=== PATIENT | male | born 1930 | race Caucasian/White ===

== ENCOUNTER 2016-09-28 13:51 | Inpatient (IN) | payer OTHER ==
[2016-09-29] MEDS ORDERED: ONDANSETRON 4 MG/2 ML VIAL IVP PRN (10:38)
[2016-09-29] MEDS ORDERED: OXYCODONE/APAP 5/325 TAB PO PRN (10:38)
[2016-09-29] MEDS ORDERED: ONDANSETRON DISINTEGRATING 4 MG TAB PO PRN (10:38)
[2016-09-29] MEDS ORDERED: ACETAMINOPHEN 325 MG TAB PO PRN (10:38)
[2016-09-29] MEDS ORDERED: LIDO/EPI 1% **for epidural** 30 ML SDV IF ONE (13:00)
--- NOTE | 2016-09-29 14:28 | GHP ---
[f rep st] HISTORY AND PHYSICAL DATE OF ADMISSION: 09/29/2016 DATE OF EVALUATION: 09/29/2016 CHIEF COMPLAINT: Memory loss and balance issues. HISTORY OF PRESENT ILLNESS: The patient is a pleasant 86-year-old male who has been followed by Dr. 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 The patient has a several year hi story of posterior neck pain and left arm pain that has been treated previously with spine injections at [facility] and did well from that. The patient's reports change in the patient's ability to remember things and occasional difficulty with headaches and shuffling gait and poor balance. The patient has an MRI dated 10/22/2014 from [facility] demonstrating moderate perive ntricular and deep hemispheric white matter changes with enlargement of the lateral ventricles. The patient also has likely some component of dementia. Conversation took place with Dr. Pearl regarding whether or not the patient would be a candid ate for a ventriculoperitoneal shunt placement and it was decided that the patient would potentially benefit from an inpatient lumbar drainage trial in the ICU to determine whether or not his symptoms i mproved with drainage of CSF. The patient was subsequently admitted today directly to the ICU for th is trial. FAMILY HISTORY: Dementia. MEDICAL HISTORY: Hernia repair. SOCIAL HISTORY: The patient has never smoked. He drinks a glass of wine daily. The patient is dre ied with 1 grown daughter named Saida who is a nurse practitioner. ALLERGIES: No known drug allergies. REVIEW OF SYSTEMS: A 10-point review of systems is obtained and the patient has some sleeping diffic ulty. He wears glasses. He has hearing loss. He has kidney stones. Poor balance with frequent fal ls. Depression. Dementia. Leg weakness. Neck pain. Arm pain. PHYSICAL EXAMINATION: GENERAL: This is a well developed, well nourished, alert and oriented male in no apparent distress. HEAD, EARS, NOSE, AND THROAT: Within normal limits. EXTREMITIES: Within no rmal limits. NEUROLOGIC: The patient has equal and symmetric strength of the bilateral upper and lo wer extremities with normal sensation in all dermatome distributions of the bilateral upper and lower extremities. His reflexes are 2+ bilaterally in the upper and lower extremities in biceps, brachior adialis, and patellar tendons. VITAL SIGNS: Blood pressure is 120/65, heart rate 64, respiratory rate is 14, oxygen saturation is 9 3% on room air. IMPRESSION: This is an 86-year-old male with progressive memory loss and gait instability and questi onable normal pressure hydrocephalus. He is not having any urinary incontinence. The patient has ve ntriculomegaly on an MRI from 2015. It is unclear as to whether or not the patient has hydrocephalus or not and is currently admitted for a lumbar drain trial. The patient does have some memory issues and may have a component of dementia that is contributing to that problem. PLAN: All the above issues were discussed with the patient and the patient's and daughter who w ere present today with Dr. Pearl. A lumbar drain procedure consent form was signed and the patient agreed to proceed with lumbar drain placement under sterile conditions in the ICU. Successf ul lumbar drain placement was obtained on the 1st pass of the Tuohy needle. At this time, the patient will undergo approximately 30 mL of CSF drainage and then approximately 10- 20 mL of CSF drainage per hour. He was evaluated by Physical Therapy and Occupational Therapy prior to placement of the lumbar drain to obtain a baseline functional status. PT and OT will then reasses s the patient later today to determine if there is any improvement. If improvement is noted and coul d be reasonably correlated to the results of the lumbar drainage, then we would consider NURSING HOME ADMINISTRATOR shunt norah cement. Dr. Pearl was present during the entire procedure for placement of lumbar drain. /[id number]/MODL
--- NOTE | 2016-09-29 16:44 | GCON ---
[f rep st] CONSULTATION PULMONARY/CRITICAL CARE CONSULTATION. DATE OF CONSULTATION: 09/29/2016 REFERRING PHYSICIAN: Miki Pearl MD REASON FOR REFERRAL: Evaluation and management of headache. HISTORY: The patient is an 86-year-old gentleman with a diagnosis of normal pressure hydrocephalus w ho was referred to Dr. Pearl to consider placement of a ventriculoperitoneal shunt. A lumbar drain was placed early this afternoon and the patient was taken for a walk. Physical Therapy felt t hat his gait was a bit better, but the patient did not notice a significant improvement. He has had a diffuse headache since the drain was placed. This is improved with the patient lying down. PAST MEDICAL HISTORY: Hernia repair. MEDICATIONS: At the time of admission include atorvastatin and aspirin. ALLERGIES: None. SOCIAL HISTORY: The patient has never smoked. He drinks a glass of wine daily. He is with a grown daughter. FAMILY HISTORY: Positive for dementia. REVIEW OF SYSTEMS: A 10-point review of systems reveals some difficulties with sleeping and some dep ression. PHYSICAL EXAMINATION: GENERAL: The patient is awake, alert in no acute distress. He currently haylie es a headache. VITAL SIGNS: His blood pressure is 120/61 with a pulse of 64. He is afebrile. Oxyg en saturations are 100% on room air. HEENT: Normocephalic and atraumatic. No icterus. NECK: No J VD. Trachea is midline. CHEST: Clear to auscultation. CARDIAC: Regular rate and rhythm without m urmur. ABDOMEN: Soft, nontender. Bowel sounds are present. EXTREMITIES: No clubbing, cyanosis or edema. NEUROLOGIC: The patient's gait is somewhat unsteady. His reflexes are normal. LABORATORY: An MRI from 2014 demonstrates moderate white matter changes and generalized cerebral atr ophy with enlargement of the lateral ventricles. ASSESSMENT: 1. Possible normal pressure hydrocephalus. The patient had a lumbar drain placed as a diagnostic te st to see whether decompression will help. Immediately after, it is not certain that the patient has had a significant clinical improvement. 2. Headache. This is likely due to drainage of CSF from the lumbar drain. It is improved now with the patient lying back. RECOMMENDATIONS: 1. Continue lumbar drainage as tolerated. 2. Tylenol/oxycodone for headache. If the headache becomes more refractory, then the amount of CSF drained may need to be reduced. Drained may be beneficial. /[id number]/MODL
--- NOTE | 2016-09-29 17:43 | GOP ---
[f rep st] OPERATIVE REPORT DATE OF OPERATION: 09/29/2016 SURGEON: Miki Pearl MD WATER RESOURCES PROGRAM DIRECTOR: Antonio Cam ANESTHESIA: Local. PREOPERATIVE DIAGNOSIS: Possible normal pressure hydrocephalus. POSTOPERATIVE DIAGNOSIS: Possible normal pressure hydrocephalus. PROCEDURE PERFORMED: Placement of lumbar drainage catheter for therapeutic drainage of cerebral spin al fluid. FINDINGS: ESTIMATED BLOOD LOSS: Trace. DESCRIPTION OF PROCEDURE: After informed consent was obtained, the patient was placed in the p osition with left side up. The lumbosacral area was prepped and draped in a sterile fashion, and the subcutaneous tissues infiltrated with local anesthesia at approximately the L4-5 level based on the crest of the iliac hip bone. The Tuohy needle was inserted without difficulty. Good CSF flow was obtained. The drainage catheter was inserted to about 10 cm and connected to a Price drain. 30 cc were drained, and the nurses wer e instructed to drain approximately 10-20 cc continuously for repeated evaluation with Physical Thera py. COMPLICATIONS: None. INDICATIONS FOR PROCEDURE: The patient is an 86-year-old man with gait instability, urinary incontin ence, and progressive mental decline. His daughter is a nurse practitioner and after detailed discus sions of possible options, including ventriculoperitoneal shunting, it was decided to do a trial of C SF drainage. This was also discussed with his neurologist, Dr. Miki Gallego. It was explained in great detail that there was no guarantee this would be predictive of the shunting outcome. /[id number]/MODL
[2016-09-30 06:13] VITALS: O2SAT 95
[2016-09-30] MEDS ORDERED: ATORVASTATIN CALCIUM 20 MG TAB PO SCH (09:00)
[2016-09-30 10:40] VITALS: BP 138/68; PULSE 77; RESP 14; TEMP 97.8
--- NOTE | 2016-09-30 11:20 | PDIAF ---
- Diagnosis Code Status: Full Code - Medication Management Discharge Medications: Medications to Continue on Transfer Atorvastatin Calcium [Lipitor 20 mg (*)] 20 mg PO DAILY 01/06/15 [Last Taken Unknown] Aspirin [Aspirin 81mg (*)] 81 mg PO DAILY 09/29/16 [Last Taken 10 Days Ago] Discharge Medications: Refer to the Discharge Home Medication list for PRN reason. - Orders Services needed: Home Care, Physical Therapy, Occupational Therapy Home Care Face to Face: I certify that this patient was under my care and that I had the required [id number] encounter meeting the encounter requirements on the discharge day. My findings support the fact that the patient is homebound as defined in CMS Chapter 7 Medicare Benefits Manual 30.1.1, The condition of the patient is such that there exists a normal inability to leave home and consequently, leaving home would require a considerable and taxing effort. Diet Recommendation: no restrictions on diet Diet Texture: Regular Texture Diet Additional: Home care with PT/OT for safety evaluation - Follow Up Care Current Providers and Referrals: Micah Rodarte DO [Primary Care Provider] -
== END 2016-09-30 13:04 | disposition home health service (06) | DRG 57 ==
LOC: F2N 09-29 09:47
PROVIDERS: ADMIT Neurological Surgery; ATTEND Neurological Surgery
PROC: 009U30Z Drainage of Spinal Canal with Drainage Device, Percutaneous Approach (ICD-10-PCS; principal; 2016-09-29)
DX: G91.2 (Idiopathic) normal pressure hydrocephalus (principal); F03.90 Unspecified dementia, unspecified severity, without behavioral disturbance, psychotic disturbance, mood disturbance, and anxiety
CPT/HCPCS: 97110-GP; 97116-GP; 97162-GP; 97164-GP; 97166-GO; G8978-GP-CJ; G8979-GP-CI; G8987-GO-CI; G8988-GO-CI; J0690

== ENCOUNTER → 2017-02-16 | Outpatient (CLI) | payer OTHER | LOC: FIMAGING 15:45 | PROVIDERS: ATTEND Family Medicine | DX: M11.13 Familial chondrocalcinosis, wrist (principal); M85.441 Solitary bone cyst, right hand ==

== ENCOUNTER 2017-07-08 11:50 | Inpatient (IN) | payer OTHER ==
[2017-07-08 12:33] LABS: % IMMATURE GRANULYOCYTES 0.5 % (0.0-1.1); ABSOLUTE IMMATURE GRANULOCYTES 0.04 10^3/uL (0.00-0.10); ADD DIFF? NO; ADD MORPH? NO; ADD SCAN? NO; ATYPICAL LYMPHOCYTE FLAG 0 (0-99); FRAGMENT RBC FLAG 0 (0-99); HEMATOCRIT 39.3 % (40.0-51.0); HEMOGLOBIN 14.4 g/dL (13.7-17.5); LEFT SHIFT FLG 10 (0-99); LIPEMIA HEMOLYSIS FLAG 90 (0-99); MEAN CELL HEMOGLOBIN 35.6 pg (27.9-34.1); MEAN CELL HEMOGLOBIN CONCENTR. 36.6 g/dL (32.4-36.7); MEAN PLATELET VOLUME 8.4 fL (8.7-11.7); PLATELET CLUMPS FLAG 0 (0-99); PLATELET COUNT 240 10^3/uL (150-400); RED BLOOD CELL COUNT 4.05 10^6/uL (4.40-6.38); RED CELL DISTRIBUTION WIDTH 12.4 % (11.5-15.2)
[2017-07-08 12:38] LABS: COLOR YELLOW; LEUKOCYTE ESTERASE,URINE NEGATIVE (NEGATIVE); NITRITE,URINE NEGATIVE (NEGATIVE)
--- NOTE | 2017-07-08 12:40 | CPEKG ---
Heart Rate: 75 RR Interval: 800 P-R Interval: 168 QRSD Interval: 68 QT Interval: 372 QTC Interval: 416 P [place]: 18 QRS [place]: -1 T Wave [place]: 7 EKG Severity - NORMAL ECG - EKG Impression: SINUS RHYTHM Electronically Signed By: Sheldon Deleon 09-Jul-2017 21:55:13
[2017-07-08 12:49] LABS: ANION GAP 12 mEq/L (8-16); CARBON DIOXIDE 22 mEq/l (22-31); CHLORIDE 107 mEq/L (97-110); CREATININE 1.1 mg/dL (0.7-1.3); GLOMERULAR FILTRATION RATE > 60; GLUCOSE 92 mg/dL (70-100); POTASSIUM 3.9 mEq/L (3.5-5.2); SODIUM 141 mEq/L (134-144)
--- NOTE | 2017-07-08 12:51 | EDPHY ---
H & P Stated Complaint: RLQ pain Time Seen by Provider: 07/08/17 12:35 HPI/ROS: CHIEF COMPLAINT: Right lower abdominal pain HISTORY OF PRESENT ILLNESS: 86-year-old male arrives via ambulance with his complaining of several months of intermittent lower abdominal pain worsens 3:00 a.m.. No nausea or vomiting. Bowel movements normal. No testicular genitalia pain. No urinary abnormality. No back or flank pain. No fever or chills. No history of abdominal surgeries. PRIMARY CARE PROVIDER: Dr. Micah Rodarte REVIEW OF SYSTEMS: A ten point review of systems was performed and is negative with the exception of the items mentioned in the HPI PAST MEDICAL & SURGICAL HISTORY: Remote herniorrhaphy history. SOCIAL HISTORY:nonsmoker PHYSICAL EXAM (Prior to examination, patient consented to physical exam, hands were washed and my usual and customary physical exam procedures followed) 1) GENERAL: Well-developed, well-nourished, alert and oriented. Appears to be in no acute distress. 2) HEAD: Normocephalic, atraumatic 3) HEENT: Pupils equal, round, reactive to light bilaterally. Sclera anicteric. Nasopharynx, oropharynx, clear, no lesions. Dry mucous membranes 4) NECK: Full range of motion, no meningeal signs. 5) LUNGS: Clear auscultation bilaterally, no wheezes, no rhonchi, no retractions. 6) HEART: Regular rate and rhythm, no murmur, no heave, no gallop. 7) ABDOMEN: No guarding, tender to palpation right lower quadrant positive McBurney's point pain , negative Lou's, negative Rovsing's, negative peritoneal sign, 8) MUSCULOSKELETAL: Moving all extremities, no focal areas of tenderness, no obvious trauma. No peripheral edema or discoloration. 9) BACK: No CVA tenderness, no midline vertebral tenderness, no fluctuance, no step-off, no obvious trauma, no visual or palpable abnormality. 10) SKIN: No rash, no petechiae. 11) : Normal male external genitalia bilateral testicles nontender, no high- riding testicle, bilateral cremasteric reflex present and brisk DIFFERENTIAL DIAGNOSIS: My differential diagnosis includes, but is not limited to, acute appendicitis, acute cholecystitis, bowel obstruction, acute pancreatitis, testicular torsion, gastritis and urinary tract infection. The patient understands that this diagnosis is provisional and can never be 100% accurate. This is a partial list of diagnoses considered. These considerations are based on history, physical exam, past history and reassessment. - Medical/Surgical History Hx Asthma: No Hx Chronic Respiratory Disease: No Hx Diabetes: No Hx Cardiac Disease: No Hx Renal Disease: No Hx Cirrhosis: No Hx Alcoholism: No Hx HIV/AIDS: No Hx Splenectomy or Spleen Trauma: No Other PMH: hx neck injury/arthritis neck; mild cognitive disorder. Dementia - Social History Smoking Status: Never smoked Constitutional: Initial Vital Signs Temperature (C) 36.9 C 07/08/17 12:09 Heart Rate 77 07/08/17 12:09 Respiratory Rate 16 07/08/17 12:09 Blood Pressure 133/77 H 07/08/17 12:09 O2 Sat (%) 92 07/08/17 12:09 O2 Delivery Mode Room Air Allergies/Adverse Reactions: No Known Allergies Allergy (Unverified 01/06/15 11:48) Home Medications: Medication Instructions Recorded Atorvastatin Calcium [Lipitor 20 20 mg PO DAILY 01/06/15 mg (*)] Aspirin [Aspirin 81mg (*)] 81 mg PO DAILY 09/29/16 Medical Decision Making - Diagnostics Imaging Results: Imaging Impressions Abdomen CT 07/08/17 12:48 Impression: 1. Right lower lobe pulmonary embolism. 2. Normal appendix. 3. Peripelvic cysts of the kidneys. 4. Lumbar degenerative disk disease. Report telephoned to Bolivar Arrington PA-C, at 1405 hours. Images reviewed by myself ED Course/Re-evaluation: 12:50 p.m.:Care of patient under supervision of secondary supervising physician Dr Romero . High clinical suspicion for acute appendicitis. Recommend CT imaging. Patient and are agreeable with this. 2:20 p.m.: This patient was noted to have pulmonary emboli in the right lower lobe on the CT the abdomen and pelvis. Discussed this with the patient and his , recommended admission. No prior history atrial fibrillation or cardiac arrhythmia, no anticoagulant use. Plan will be admission. Consultation with hospitalist Dr. Darren Momin who will admit patient. - Data Points Laboratory Results: Laboratory Results 07/08/17 Unknown 07/08/17 Unknown 07/08/17 07/08/17 07/08/17 Unknown Unknown Unknown WBC 8.83 10^3/uL 10^3/uL (3.80-9.50) RBC 4.05 10^6/uL L 10^6/uL (4.40-6.38) Hgb 14.4 g/dL g/dL (13.7-17.5) Hct 39.3 % L % (40.0-51.0) MCV 97.0 fL fL (81.5-99.8) MCH 35.6 pg H pg (27.9-34.1) MCHC 36.6 g/dL g/dL (32.4-36.7) RDW 12.4 % % (11.5-15.2) Plt Count 240 10^3/uL 10^3/uL (150-400) MPV 8.4 fL L fL (8.7-11.7) Neut % (Auto) 73.8 % % (39.3-74.2) Lymph % (Auto) 14.5 % L % (15.0-45.0) Sabine % (Auto) 10.4 % % (4.5-13.0) Eos % (Auto) 0.6 % % (0.6-7.6) Baso % (Auto) 0.2 % L % (0.3-1.7) Nucleat RBC Rel Count 0.0 % % (0.0-0.2) Absolute Neuts (auto) 6.52 10^3/uL H 10^3/uL (1.70-6.50) Absolute Lymphs (auto) 1.28 10^3/uL 10^3/uL (1.00-3.00) Absolute Monos (auto) 0.92 10^3/uL H 10^3/uL (0.30-0.80) Absolute Eos (auto) 0.05 10^3/uL 10^3/uL (0.03-0.40) Absolute Basos (auto) 0.02 10^3/uL 10^3/uL (0.02-0.10) Absolute Nucleated RBC 0.00 10^3/uL 10^3/uL (0-0.01) Immature Gran % 0.5 % % (0.0-1.1) Immature Gran # 0.04 10^3/uL 10^3/uL (0.00-0.10) Sodium 141 mEq/L mEq/L (134-144) Potassium 3.9 mEq/L mEq/L (3.5-5.2) Chloride 107 mEq/L mEq/L (97-110) Carbon Dioxide 22 mEq/l mEq/l (22-31) Anion Gap 12 mEq/L mEq/L (8-16) BUN 19 mg/dL mg/dL (7-23) Creatinine 1.1 mg/dL mg/dL (0.7-1.3) Estimated GFR > 60 Glucose 92 mg/dL mg/dL (70-100) Calcium 9.0 mg/dL mg/dL (8.5-10.4) Total Bilirubin 1.5 mg/dL H mg/dL (0.1-1.4) Conjugated Bilirubin 0.1 mg/dL mg/dL (0.0-0.5) Unconjugated Bilirubin 1.4 mg/dL H mg/dL (0.0-1.1) AST 18 IU/L IU/L (17-59) ALT 27 IU/L IU/L (21-72) Alkaline Phosphatase 59 IU/L IU/L (38-126) Total Protein 6.0 g/dL L g/dL (6.3-8.2) Albumin 3.6 g/dL g/dL (3.5-5.0) Lipase 64 IU/L IU/L (23-300) Urine Color YELLOW Urine Appearance CLEAR Urine pH 5.0 (5.0-7.5) Ur Specific [place] 1.021 (1.002-1.030) Urine Protein NEGATIVE (NEGATIVE) Urine Ketones NEGATIVE (NEGATIVE) Urine Blood NEGATIVE (NEGATIVE) Urine Nitrate NEGATIVE (NEGATIVE) Urine Bilirubin NEGATIVE (NEGATIVE) Urine Urobilinogen NEGATIVE EU EU (0.2-1.0) Ur Leukocyte Esterase NEGATIVE (NEGATIVE) Ur Culture Indicated? NOT INDICATED (NI) Urine Glucose NEGATIVE (NEGATIVE) Medications Given: Discontinued Medications Fentanyl (Sublimaze) 50 mcg IVP EDNOW ONE Stop: 07/08/17 13:45 Last Admin: 07/08/17 13:54 Dose: 50 mcg Sodium Chloride (Ns) 500 mls @ 0 mls/hr IV ONCE ONE PRN Reason: TKO Stop: 07/08/17 13:46 Last Admin: 07/08/17 13:56 Dose: 500 mls Departure - Departure Disposition: [facility] Inpatient Acute Clinical Impression: Pulmonary emboli Qualifiers: Pulmonary embolism type: other Chronicity: acute Acute cor pulmonale presence: without acute cor pulmonale Qualified Code(s): I26.99 - Other pulmonary embolism without acute cor pulmonale Condition: Good Referrals: Micah Rodarte DO [Primary Care Provider] - As per Instructions
[2017-07-08] MEDS ORDERED: IOPAMIDOL (ISOVUE-300) 100 ML BTL ONE (13:07)
[2017-07-08 13:08] LABS: ALANINE AMINOTRANSFERASE 27 IU/L (21-72); ALBUMIN 3.6 g/dL (3.5-5.0); ALKALINE PHOSPHATASE 59 IU/L (38-126); ASPARTATE AMINOTRANSFERASE 18 IU/L (17-59); BILIRUBIN,TOTAL 1.5 mg/dL (0.1-1.4); BILIRUBIN-CONJUGATED 0.1 mg/dL (0.0-0.5); BILIRUBIN-UNCONJUGATED 1.4 mg/dL (0.0-1.1)
[2017-07-08] MEDS ORDERED: fentaNYL 100 MCG/2 ML INJ IVP ONE (13:44)
[2017-07-08] MEDS ORDERED: NS 500 ML IV ONE (13:45)
[2017-07-08 14:28] LABS: INR 1.04 (0.83-1.16); PROTIME(PATIENT) 13.5 SEC (12.0-15.0)
[2017-07-08 14:29] LABS: APTT 27.5 SEC (23.0-38.0)
[2017-07-08] MEDS ORDERED: oxyCODONE IR 5 MG TAB PO PRN (14:49)
[2017-07-08] MEDS ORDERED: ONDANSETRON DISINTEGRATING 4 MG TAB PO PRN (14:49)
[2017-07-08] MEDS ORDERED: ONDANSETRON 4 MG/2 ML VIAL IVP PRN (14:49)
[2017-07-08] MEDS ORDERED: NS 1,000 ML IV SCH (15:00)
[2017-07-08] MEDS: ENOXAPARIN 80 MG/0.8 ML SYR SC SCH ×2 (15:17→19:53)
--- NOTE | 2017-07-08 15:37 | GHP ---
[f rep st] HISTORY AND PHYSICAL DATE OF ADMISSION: 07/08/2017 HISTORY OF PRESENT ILLNESS: The patient is an 86-year-old gentleman with a history of nephrolithiasi s and neurologic decline, that may be parkinsonism, who presents with right-sided pain. His ramez andrew it was perhaps a kidney stone, given his previous history. There has been no hematuria. No short ness of breath, although he did notice some pain with breathing. She actually summoned overg and, when he sat up, his pain felt better, so he declined admission. This morning he is complaini ng of more pain so she brought him in via . He has no cardiac history. With his progressive ne urologic decline over the last couple of months, she notes that he has been sedentary, spending most of the day in his chair, sleep until about noon with significant functional decline. He now has a DN R in place. Notably he was admitted in September of this year where he had a lumbar drain of CSF placed by Dr. Karo lennon, given the concern for possible normal pressure hydrocephalus. However, there was essentia lly no change in hiss function status, so PENCIL SORTER shunt was not performed. REVIEW OF SYSTEMS: Complete 10-point review of systems conducted, negative except as noted in the HP I. PAST MEDICAL HISTORY: 1. Progressive neurologic decline. 2. Urinary incontinence. 3. Nephrolithiasis. 4. Possible parkinsonism. ALLERGIES: No known drug allergies. HOME MEDICATIONS: Carbidopa/levodopa, vitamin D3, and aspirin. 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 No tobacco. No alcohol. Lives with his . Daughter is an OFFICE NURSE. FAMILY HISTORY: Reviewed and unremarkable. PHYSICAL EXAMINATION: VITAL SIGNS: Temp 37, blood pressure 133/77, pulse 77, breathing 16 times a m inute, 98% on room air. GENERAL: No acute distress. HEENT: Sclerae anicteric. Oropharynx clear. Mucous membranes moist. NECK: Supple. No lymphadenopathy or JVD. LUNGS: Clear to auscultation bi laterally. HEART: S1, S2 without thick split S2. ABDOMEN: Soft. Nontender, nondistended. LOWER E XTREMITIES: Without edema. Calves nontender. SKIN: Without rash. NEUROLOGIC: Nonfocal. DIAGNOSTIC STUDIES: White count 8.8, hematocrit 39, platelets 240,000. INR is 1. Sodium 141, potass ium 3.9, chloride 107, bicarb 22, BUN 19, creatinine 1.1. Glucose is 92. Bilirubin is 1.5. LFTs are otherwise normal. UA is unremarkable. CT of the abdomen shows an unremarkable abdomen but small volu me right lower pulmonary embolism. EKG, interpreted by me, shows sinus at 75 with normal axis and in tervals. No evidence of right heart strain. I have discussed the case Mily EDD Arrington, of the emergency department. ASSESSMENT/PLANS: This is an 86-year-old gentle with acute pulmonary embolism. 1. Pulmonary embolism. The patient has pulmonary embolism, although his clot burden is not clear be cause it was performed on an abdominal CT. Nevertheless, he warrants treatment. I will start him on low-molecular weight heparin at 1 mg/kg subcu twice daily. I will also start him on warfarin this ev ening. The patient is high risk for anticoagulation given his history of falls but this warrants pro bably 3 months of anticoagulation or at least a trial thereof. I will perform a CT in the morning af ter hydration to evaluate his complete clot burden; I suspect it is low. 2. Parkinsonism. I do notice a pill-rolling tremor and jaw tremor. We will continue his levodopa. 3. Code status: Do not resuscitate. 4. History of nephrolithiasis. He has normal urinalysis. I do not think this is coexisting with hi s current presentation. DISPOSITION: Inpatient status. /[id number]/MODL
[2017-07-08] MEDS: WARFARIN SODIUM 5 MG TAB PO SCH (17:41)
[2017-07-09 04:39] LABS: % IMMATURE GRANULYOCYTES 0.5 % (0.0-1.1); ABSOLUTE IMMATURE GRANULOCYTES 0.05 10^3/uL (0.00-0.10); ADD DIFF? NO; ADD MORPH? NO; ADD SCAN? NO; ATYPICAL LYMPHOCYTE FLAG 0 (0-99); FRAGMENT RBC FLAG 0 (0-99); HEMATOCRIT 36.1 % (40.0-51.0); HEMOGLOBIN 12.9 g/dL (13.7-17.5); LEFT SHIFT FLG 0 (0-99); LIPEMIA HEMOLYSIS FLAG 90 (0-99); MEAN CELL HEMOGLOBIN CONCENTR. 35.7 g/dL (32.4-36.7); MEAN CELL VOLUME 97.8 fL (81.5-99.8); MEAN PLATELET VOLUME 8.9 fL (8.7-11.7); PLATELET CLUMPS FLAG 0 (0-99); PLATELET COUNT 204 10^3/uL (150-400); RED BLOOD CELL COUNT 3.69 10^6/uL (4.40-6.38); RED CELL DISTRIBUTION WIDTH 12.3 % (11.5-15.2)
[2017-07-09 04:45] LABS: INR 1.18 (0.83-1.16)
[2017-07-09 05:06] LABS: ANION GAP 11 mEq/L (8-16); CALCIUM 8.2 mg/dL (8.5-10.4); CARBON DIOXIDE 20 mEq/l (22-31); CHLORIDE 109 mEq/L (97-110); GLOMERULAR FILTRATION RATE > 60; GLUCOSE 97 mg/dL (70-100); POTASSIUM 3.6 mEq/L (3.5-5.2); SODIUM 140 mEq/L (134-144)
[2017-07-09] MEDS: ENOXAPARIN 80 MG/0.8 ML SYR SC SCH ×2 (09:33→19:56)
[2017-07-09] MEDS: CHOLECALCIFEROL VIT D3 1,000 UNITS TAB PO SCH (09:33)
[2017-07-09] MEDS: CARBIDOPA/LEVODOPA 25 MG/100 MG TAB PO SCH (09:33)
[2017-07-09] MEDS ORDERED: IOPAMIDOL (ISOVUE 370) 100 ML BTL IV ONE (10:49)
--- NOTE | 2017-07-09 11:24 | ASMTCMCOM ---
CM Note CM Note Notes: 07/09/2017 Case Management Note Met w/pt . She is 6 weeks post op knee replacement and expressed concerns about her ability to care for pt in the home. Requested referrals to [facility], [facility] rehab and [facility]. She mentioned that she is looking at [facility] with her daughter for possible pt placement in the months ahead. She requested RN call her husbands daughter who is WATER AND FIRE TECHNICIAN in [place]. Faxed referrals. Case management d/c poc: to SNF when accepted. Date Signed: 07/09/2017 11:24 AM Electronically Signed By:Steffi Kennedy RN
--- NOTE | 2017-07-09 13:19 | HOSPPROG ---
Hospitalist Progress Note Assessment/Plan: 86 yo M w likely parkinsonism admitted w RLL PE; mod clot burden PE: reasonable to call this a provoked VTE given how sedentary he is LMWH->coumadin parkinsonism: continue levodopa R chest pain: attributable to PE proph: anticoagulated plan o care: requesting palliative care consult dispo: inpt Subjective: CT angio w RLL PE, small pleural effusion (interp by me) Objective: Vital Signs Temp Pulse Resp BP Pulse Ox 36.4 C 80 16 144/78 H 93 07/09/17 11:16 07/09/17 11:16 07/09/17 11:16 07/09/17 11:16 07/09/17 11:16 Laboratory Results 07/09/17 03:28 07/09/17 03:28 07/08/17 07/09/17 07/10/17 05:59 05:59 05:59 Intake Total 1300 Output Total 425 75 Balance 875 -75 PT 15.0 SEC (12.0-15.0) 07/09/17 03:28 INR 1.18 (0.83-1.16) H 07/09/17 03:28 - Physical Exam Constitutional: no apparent distress, appears nourished Eyes: PERRL, anicteric sclera Ears, Nose, Mouth, Throat: moist mucous membranes, hearing normal Cardiovascular: regular rate and rhythym, no murmur, rub, or gallop Respiratory: no respiratory distress, no rales or rhonchi Gastrointestinal: normoactive bowel sounds, soft, non-tender abdomen Genitourinary: no bladder fullness, No staley in urethra Skin: warm, normal color Musculoskeletal: No full muscle strength Neurologic: No AAOx3 Psychiatric: interacting appropriately ICD10 Worksheet Patient Problems: Problems Problem Status Onset Pulmonary emboli Acute
[2017-07-09] MEDS: WARFARIN SODIUM 5 MG TAB PO SCH (17:03)
[2017-07-09] MEDS ORDERED: BISACODYL 10 MG SUPP PR PRN (18:12)
[2017-07-09] MEDS ORDERED: POLYETHYLENE GLYCOL 3350 17 GM PKT PO PRN (18:12)
[2017-07-09] MEDS ORDERED: LACTULOSE 20 GM/30 ML UDCUP PO PRN (18:12)
[2017-07-09] MEDS ORDERED: MAGNESIUM HYDROXIDE 30 ML UDCUP PO PRN (18:12)
[2017-07-09] MEDS: SENNOSIDES/DOCUSATE SODIUM TAB PO SCH (19:56)
[2017-07-10] MEDS: ACETAMINOPHEN 325 MG TAB PO PRN ×2 (01:10→17:31)
[2017-07-10 05:11] LABS: INR 1.31 (0.83-1.16); PROTIME(PATIENT) 16.3 SEC (12.0-15.0)
--- NOTE | 2017-07-10 10:00 | HOSPPROG ---
Hospitalist Progress Note Assessment/Plan: 86 yo M w likely parkinsonism admitted w RLL PE; mod clot burden PE: reasonable to call this a provoked VTE given how sedentary he is LMWH->coumadin parkinsonism: continue levodopa R chest pain: attributable to PE proph: anticoagulated knee pain: benign exam follow plan o care: requesting palliative care consult PT rec SNF dispo: inpt Subjective: pt rec snf. c/o r knee pain Objective: Vital Signs Temp Pulse Resp BP Pulse Ox 36.3 C 74 16 144/71 H 91 L 07/10/17 08:00 07/10/17 08:00 07/10/17 08:00 07/10/17 08:00 07/10/17 08:00 Laboratory Results 07/09/17 03:28 07/09/17 03:28 07/09/17 07/10/17 07/11/17 05:59 05:59 05:59 Intake Total 1300 600 Output Total 425 75 Balance 875 525 PT 16.3 SEC (12.0-15.0) H 07/10/17 04:02 INR 1.31 (0.83-1.16) H 07/10/17 04:02 - Physical Exam Constitutional: no apparent distress, appears nourished Eyes: PERRL, anicteric sclera Ears, Nose, Mouth, Throat: moist mucous membranes, hearing normal Cardiovascular: regular rate and rhythym, no murmur, rub, or gallop Respiratory: no respiratory distress, no rales or rhonchi Gastrointestinal: normoactive bowel sounds, soft, non-tender abdomen Genitourinary: no bladder fullness, No staley in urethra Skin: warm, normal color Musculoskeletal: full muscle strength, other (R knee normal) Neurologic: AAOx3 Psychiatric: interacting appropriately ICD10 Worksheet Patient Problems: Problems Problem Status Onset Pulmonary emboli Acute
[2017-07-10] MEDS: CARBIDOPA/LEVODOPA 25 MG/100 MG TAB PO SCH (11:58)
[2017-07-10] MEDS: SENNOSIDES/DOCUSATE SODIUM TAB PO SCH ×2 (11:59→20:11)
[2017-07-10] MEDS: CHOLECALCIFEROL VIT D3 1,000 UNITS TAB PO SCH (11:59)
[2017-07-10] MEDS: ENOXAPARIN 80 MG/0.8 ML SYR SC SCH ×2 (11:59→19:48)
[2017-07-10] MEDS ORDERED: LIDOCAINE 1% 300 MG/30 ML SDV ONE (12:45)
[2017-07-10 15:54] LABS: GLUCOSE, SYNOVIAL FLUID 91 mg/dL (55-113)
[2017-07-10 16:34] LABS: WBC, SYNOVIAL FLUID 23265 /mm3 (0-150)
[2017-07-10] MEDS: COLCHICINE 0.6 MG CAP/TAB PO SCH ×2 (17:17→19:48)
[2017-07-10] MEDS: WARFARIN SODIUM 5 MG TAB PO SCH (17:17)
[2017-07-11 05:30] LABS: % IMMATURE GRANULYOCYTES 0.5 % (0.0-1.1); ABSOLUTE IMMATURE GRANULOCYTES 0.06 10^3/uL (0.00-0.10); ADD DIFF? NO; ADD MORPH? NO; ADD SCAN? NO; ATYPICAL LYMPHOCYTE FLAG 0 (0-99); FRAGMENT RBC FLAG 50 (0-99); HEMATOCRIT 35.8 % (40.0-51.0); HEMOGLOBIN 13.1 g/dL (13.7-17.5); LEFT SHIFT FLG 10 (0-99); LIPEMIA HEMOLYSIS FLAG 90 (0-99); MEAN CELL HEMOGLOBIN 35.7 pg (27.9-34.1); MEAN CELL HEMOGLOBIN CONCENTR. 36.6 g/dL (32.4-36.7); MEAN CELL VOLUME 97.5 fL (81.5-99.8); MEAN PLATELET VOLUME 9.1 fL (8.7-11.7); PLATELET CLUMPS FLAG 30 (0-99); PLATELET COUNT 260 10^3/uL (150-400); RED BLOOD CELL COUNT 3.67 10^6/uL (4.40-6.38); RED CELL DISTRIBUTION WIDTH 12.4 % (11.5-15.2)
[2017-07-11 05:38] LABS: INR 1.63 (0.83-1.16); PROTIME(PATIENT) 19.4 SEC (12.0-15.0)
--- NOTE | 2017-07-11 09:02 | HOSPPROG ---
Hospitalist Progress Note Assessment/Plan: #Right knee effusion: gout #acute gout: colchicine. Negative gram stain. #Provoked PE: INR 1.6. Cont coumadin, Lovenox #Acute chest pain: improved. Due to PE #parkinson's: increased Sinemet to BID per outpatient Rx, confirmed this with #Goals: cannot care for patient at home. She requested Palliative consult #Disp: DC to SNF at [place] with Palliative Care Time spent on visit: 70 min reviewing records, discussing Palliative care and med management with pharmacy Subjective: still having pain in right knee Objective: Vital Signs Temp Pulse Resp BP Pulse Ox 37.1 C 78 18 137/70 H 90 L 07/11/17 08:00 07/11/17 08:00 07/11/17 08:00 07/11/17 08:00 07/11/17 08:00 Microbiology 07/10/17 13:30 Gram Stain - Final Knee - Aspirate Laboratory Results 07/11/17 04:14 07/09/17 03:28 07/10/17 07/11/17 07/12/17 05:59 05:59 05:59 Intake Total 600 1450 Output Total 75 Balance 525 1450 PT 19.4 SEC (12.0-15.0) H 07/11/17 04:14 INR 1.63 (0.83-1.16) H 07/11/17 04:14 - Physical Exam Constitutional: no apparent distress Eyes: PERRL Ears, Nose, Mouth, Throat: moist mucous membranes Respiratory: no respiratory distress Musculoskeletal: other (right knee with mild effusion, warmth and redness. Ankle mildly swollen as well ) Psychiatric: flat affect ICD10 Worksheet Patient Problems: Problems Problem Status Onset Palliative care encounter Acute Pulmonary emboli Acute
[2017-07-11] MEDS: ENOXAPARIN 80 MG/0.8 ML SYR SC SCH ×2 (09:22→21:46)
[2017-07-11] MEDS: CARBIDOPA/LEVODOPA 25 MG/100 MG TAB PO SCH (09:22)
[2017-07-11] MEDS: CHOLECALCIFEROL VIT D3 1,000 UNITS TAB PO SCH (09:23)
[2017-07-11] MEDS: SENNOSIDES/DOCUSATE SODIUM TAB PO SCH (09:23)
[2017-07-11] MEDS: COLCHICINE 0.6 MG CAP/TAB PO SCH ×2 (09:23→21:46)
[2017-07-11] MEDS: ACETAMINOPHEN 325 MG TAB PO PRN (09:56)
--- NOTE | 2017-07-11 11:09 | ASMTCMCOM ---
CM Note CM Note Notes: Spoke with patient's Ricky today, they would like [facility] at discharge. Called Aurelai, donor relations coordinator at [facility] and informed her of plan, also asked her to come visit patient/ in hospital. Per hospitalist Dr Hastings, patient may be ready for discharge tomorrow 07/12. CM will follow. Current D/C plan: [facility] Date Signed: 07/11/2017 11:09 AM Electronically Signed By:Kalyn Carmona RN
[2017-07-11] MEDS ORDERED: WARFARIN SODIUM 2.5 MG TAB PO ONE ×2 (16:00→18:45)
--- NOTE | 2017-07-11 17:35 | PDPCPN ---
Palliative Care Progress Note Assessment/Plan: Referring provider: Dr Momin Reason for consult: Complex medical decision making Symptom control HPI: Mikhail Bragg (Tom) is a 86 yo with PMH parkinsons admitted to the hospital for right sided pain and increase in sleeping. Ct of abdomen on admission with PE started on anti coagulation. Also with right knee effusion s/p tap now being treated for Gout. Over the past few months has been declining with increasing falls, lethargy, and decrease in motor function. Sees neurology as an outpt and being treated with trial of sinemet to dx parkinsons. Palliative care consulted per family request. Met with Brody and daughter Saida via the phone this afternoon. Brody shared that Andrey has been declining over the past few months. He had been having a lot of falls but started using a cane about 1.5 years ago. Now Brody has tried to have him use a walker as still with numerous falls. Andrey states he has a "bad knee" which has not allowed him to do the things he enjoys. He likes to be very independent and active. He was sad as he talked about the multiple loses including not being able to drive. His cognition has also been declining over the past several months with not being able to remember things, especially short term. He has hopes to gain enough strength to be able to walk again and take care of some of his own ADLs. He has been incontinent here in the hospital which is new for him. His Brody is not able to care for him at home due to her own medical illness and inability to physically help him. They fell together over the summer when andrey lost his balance and Brody fell on top of him. We spoke about goals witha focus on Andrey's quality of life. Andrey wants to try rehab to see if he can get stronger. His wish would to be at home as he fears being lonely and not being around family. Brody has started looking into alternatives for short or permeant terms as their house is not conducive for someone who falls a lot (a lot of stairs and narrow walkways). Also discussed in the future if Andrey continues to decline whether he would want to continue life prolonging treatment. Andrey has been frustrated with his decline over the past several months as well as not wanting to take a lot of medications. Assessment: Physical: - Pain: right knee pain -tylenol PRN - receiving Colchicine - could also try ice or heat - weakness: - PT/OT following - nursing support - constipation - on senna and colace Emotional/psychological: acute on chronic confusion: - maintain normal routines - keep blinds open during the day - Speech seeing Advanced Care Planning: Is patient decisional?: Yes with help Code Status: DNR MD OLEARY: Brody is MDPOA. Plan: [facility] for rehab. Brody is looking into more LTC options if unable to come home safely. Subjective: my knee hurts Objective: Social History: to Brody. Has a daughter Saida from a first marriage who lives in [place], [place]. Played [employer] for [employer] and retired from [employer]. Enjoys being as independent as possible physically and reading the [employer]. Medication list reviewed ROS: General: fatigue, weakness ENT: negative Resp: negative GI: negative : incontinence MS: right knee pain Skin: negative Neuro: negative Psych: sadness, confusion, memory loss Functional assessment: PPS: 40% Functional status: dependent on ADLs, IADLs Vital Signs Temp Pulse Resp BP Pulse Ox 36.3 C 72 17 136/65 H 96 07/11/17 16:00 07/11/17 16:00 07/11/17 16:00 07/11/17 16:00 07/11/17 16:00 Microbiology 07/10/17 13:30 Gram Stain - Final Knee - Aspirate Laboratory Results 07/11/17 04:14 07/09/17 03:28 07/10/17 07/11/17 07/12/17 05:59 05:59 05:59 Intake Total 600 1450 Output Total 75 100 Balance 525 1450 -100 PT 19.4 SEC (12.0-15.0) H 07/11/17 04:14 INR 1.63 (0.83-1.16) H 07/11/17 04:14 Physical Exam - Physical Exam General Appearance: alert, no apparent distress Respiratory: No respiratory distress, No accessory muscle use Skin: normal color, warm/dry Extremities: No pedal edema Neuro/Psych: alert, disoriented to place, disoriented to time ICD10 Worksheet Patient Problems: Problems Problem Status Onset Palliative care encounter Acute Pulmonary emboli Acute - ICD10 Problem Qualifiers (1) Palliative care encounter
[2017-07-12] MEDS: SENNOSIDES/DOCUSATE SODIUM TAB PO SCH ×2 (01:31→08:39)
[2017-07-12 05:22] LABS: INR 1.93 (0.83-1.16); PROTIME(PATIENT) 22.2 SEC (12.0-15.0)
[2017-07-12] MEDS: COLCHICINE 0.6 MG CAP/TAB PO SCH (08:38)
[2017-07-12] MEDS: CHOLECALCIFEROL VIT D3 1,000 UNITS TAB PO SCH (08:39)
[2017-07-12] MEDS: ENOXAPARIN 80 MG/0.8 ML SYR SC SCH (08:39)
[2017-07-12] MEDS ORDERED: CARBIDOPA/LEVODOPA 25 MG/100 MG TAB PO SCH (09:00)
--- NOTE | 2017-07-12 09:24 | PDIAF ---
- Diagnosis Diagnosis: pulmonary embolism, gout Code Status: Do Not Resuscitate - Medication Management Discharge Medications: Medications to Continue on Transfer Cholecalciferol Vit D3 [Vitamin D3 (*)] 1,000 units PO DAILY 07/08/17 [Last Taken Unknown] Acetaminophen [Tylenol 325mg (*)] 650 mg PO Q4HRS PRN tab 07/12/17 [Last Taken Unknown] Carbidopa/Levodopa 25/100Mg [Sinemet 25/100 MG (*)] 2 tab PO DAILY tab [Last Taken Unknown] Colchicine [Colchicine (*)] 0.6 mg PO BID #60 ea 07/12/17 [Last Taken Unknown] Enoxaparin [Lovenox 80 MG (*)] 80 mg SC BID #6 syr 07/12/17 [Last Taken Unknown] oxyCODONE IR [Oxycodone Ir (*)] 2.5 mg PO Q8H PRN #30 tab 07/12/17 [Last Taken Unknown] Discharge Medications: Refer to the Discharge Home Medication list for PRN reason. - Orders Services needed: Registered Nurse, Certified Turning Sander Operator, Physical Therapy, Occupational Therapy Diet Texture: Regular Texture Diet, Thin Liquids Additional: Please ensure Palliative Care in place - Labs/Radiology PT/INR Date: 07/13/17 (Daily until INR 2; discontinue Lovenox 2 days after at goal) - Follow Up Care Current Providers and Referrals: Micah Rodarte DO [Primary Care Provider] - As per Instructions
--- NOTE | 2017-07-12 12:31 | ASMTCMCOM ---
CM Note CM Note Notes: 07/12/2017 Case Management Note Alerted pt and of d/c pickers material handlers at 1315 by [facility] arranged by Samantha at [facility]. RN to call report. Faxed final paperwork to [facility] Date Signed: 07/12/2017 12:30 PM Electronically Signed By:Steffi Kennedy RN
[2017-07-12 13:12] VITALS: BP 122/67; PULSE 74; RESP 17; TEMP 97.8; O2SAT 93
--- NOTE | 2017-07-12 13:18 | HOSPPROG ---
Hospitalist Progress Note Assessment/Plan: #Right knee effusion: gout #acute gout: colchicine. Negative gram stain. #Provoked PE: INR 1.6. Cont coumadin, Lovenox #Acute chest pain: improved. Due to PE #parkinson's: increased Sinemet to BID per outpatient Rx, confirmed this with #Goals: cannot care for patient at home. She requested Palliative consult #Disp: DC to SNF at [place] with Palliative Care Time spent on visit: 70 min reviewing records, discussing Palliative care and med management with pharmacy Subjective: pain in right knee improved. Stood on leg with PT Objective: Vital Signs Temp Pulse Resp BP Pulse Ox 36.6 C 74 17 122/67 H 93 07/12/17 12:00 07/12/17 12:00 07/12/17 12:00 07/12/17 12:00 07/12/17 12:00 Microbiology 07/10/17 13:30 Gram Stain - Final Knee - Aspirate Laboratory Results 07/11/17 04:14 07/09/17 03:28 07/11/17 07/12/17 07/13/17 05:59 05:59 05:59 Intake Total 1450 350 350 Output Total 100 350 Balance 1450 250 0 PT 22.2 SEC (12.0-15.0) H 07/12/17 03:40 INR 1.93 (0.83-1.16) H 07/12/17 03:40 - Physical Exam Constitutional: chronically ill appearing Eyes: PERRL Ears, Nose, Mouth, Throat: moist mucous membranes Cardiovascular: regular rate and rhythym, no murmur, rub, or gallop Respiratory: no respiratory distress, no rales or rhonchi Gastrointestinal: normoactive bowel sounds, soft, non-tender abdomen Genitourinary: no bladder fullness Skin: warm Musculoskeletal: other (right knee effusion, small. Mild warmth and redness, no TTP. Able to fully extend the knee) Neurologic: AAOx3 Psychiatric: interacting appropriately ICD10 Worksheet Patient Problems: Problems Problem Status Onset Pulmonary emboli Acute Palliative care encounter Acute
--- NOTE | 2017-07-12 15:42 | ASDISCHSUM ---
Discharge Information Plan Status:SNF Medically Cleared to Leave:07/11/2017 Discharge Date:07/12/2017 01:59 PM CM D/C Disposition:[facility] ADT D/C Disposition:[facility] Facility Projected Discharge Date:07/11/2017 11:00 AM Transportation at D/C:Wheelchair Van Discharge Delay Reason: Follow-Up Date:07/11/2017 11:00 AM Discharge Slot: Final Diagnosis: Placement Information Referral Type:*Skilled Nursing/SNF Referral ID:[id number] Provider Name:[facility] Address 1:[address] Address 2: City:[place] Selection Factors: State:[place] Patient Contact Information Contact Name:DIONICIO Relationship: Address:[address] Work Phone: [facility]:[place] Alternate Phone: [facility]/Zip Code:[place] [address] Email: Financial Information Financial Class:Medicare Advantage Plans Primary Plan Desc:[facility] ADVANTAGE PLANS Primary Plan Number:[id number] Secondary Plan Desc: Secondary Plan Number: Assessment Information [facility] CM Progress Note CM Note CM Note Notes: 07/09/2017 Case Management Note Met w/pt . She is 6 weeks post op knee replacement and expressed concerns about her ability to care for pt in the home. Requested referrals to [facility], [facility] and [facility]. She mentioned that she is looking at [facility] with her daughter for possible pt placement in the months ahead. She requested RN call her husbands daughter who is CERAMIC DESIGN ENGINEER in [place]. Faxed referrals. Case management d/c poc: to SNF when accepted. Date Signed: 07/09/2017 11:24 AM Electronically Signed By:Steffi Kennedy RN [facility] CM Progress Note CM Note CM Note Notes: Spoke with patient's Ricky today, they would like [facility] at discharge. Called Aurelia, food and beverage coordinator at [facility] and informed her of plan, also asked her to come visit patient/ in hospital. Per hospitalist Dr Hastings, patient may be ready for discharge tomorrow 07/12. CM will follow. Current D/C plan: [facility] Date Signed: 07/11/2017 11:09 AM Electronically Signed By:Kalyn Carmona RN [facility] CM Progress Note CM Note CM Note Notes: 07/12/2017 Case Management Note Alerted pt and of d/c machine pecan picker at 1315 by [facility] for transport to [facility]. Transport arranged by Samantha at [facility]. RN to call report. Faxed final paperwork to [facility] Date Signed: 07/12/2017 12:30 PM Electronically Signed By:Steffi Kennedy RN Intervention Information Intervention Type:*Incorrect Registration Date of Service:07/08/2017 05:29 PM Patient Type:Observation Staff Member:GRACIA Fournier, Ana Hours: Discipline: Severity: Comment: Intervention Type:*IM-Signed Date of Service:07/12/2017 11:42 AM Patient Type:Inpatient Staff Member:Nasreen Miranda Hours: Discipline: Severity: Comment:
--- NOTE | 2017-07-12 17:42 | GDS ---
[f rep st] DISCHARGE SUMMARY DISCHARGE DIAGNOSIS: 1. Parkinson dementia. 2. Acute pulmonary embolism. 3. Acute right knee gout flare. HISTORY OF PRESENT ILLNESS: An 86-year-old male with history of Parkinson's dementia, gout, presenting with right-sided chest pain. It was initially thought to be a kidney stone, given prior history per his . He denied shortness of breath, but did have some pain with breathing. 911 was called overnight. However, pain felt better so declined admission. However, the pain returned and they came in via ambulance. HOSPITAL COURSE BY PROBLEM: 1. Provoked pulmonary embolism. This is likely due to immobility. We will continue Lovenox and Coumadin bridge until INR 2. was advised of bleeding risk, given falls. Can treat for 3 months. 2. Parkinson's dementia: Continue Sinemet. He is now at 2 tabs a day. 3. Acute chest pain. Secondary to pulmonary embolism. 4. Right knee pain/gout flare: Underwent tap and no organisms on Gram stain. Was treated with colchicine with improvement. 5. Deconditioning. Patient is transferred to [facility]. GOALS: unable to care for patient at home and feels that he will be safer in a nursing facility. Palliative Care met with her and patient yesterday in [facility]. We will continue to follow patient as an outpatient. DISPOSITION: Patient is stable for discharge to [facility]. NEW MEDICATIONS: 1. Colchicine 0.6 mg twice daily. 2. Sinemet 2 tabs daily. 3. Oxycodone 2.5 mg q.8 hours p.r.n. 4. Enoxaparin 80 mg subcu twice daily. LABORATORY DATA: Follow up INR. Once INR reaches 2, then stop Lovenox 2 days after. Time spent on DC: 60 min counseling on medications, d/w pharmacy about AC and called staff air defense officer at [facility] about medications /[id number]/MODL MTDD
== END 2017-07-12 13:59 | DRG 176 ==
LOC: EDUNIT# → OBSVTOIN 14:19 → F2W 15:25
PROVIDERS: ADMIT Internal Medicine; ATTEND Internal Medicine
PROC: 0S9C3ZX Drainage of Right Knee Joint, Percutaneous Approach, Diagnostic (ICD-10-PCS; principal; 2017-07-10)
DX: I26.99 Other pulmonary embolism without acute cor pulmonale (principal); M10.9 Gout, unspecified; G31.83 Neurocognitive disorder with Lewy bodies; F02.80 Dementia in other diseases classified elsewhere, unspecified severity, without behavioral disturbance, psychotic disturbance, mood disturbance, and anxiety; Z91.81 History of falling; Z87.442 Personal history of urinary calculi; Z51.5 Encounter for palliative care
CPT/HCPCS: 92507-GN; 92523-GN; 96374; 97116-GP; 97161-GP; 97166-GO; 97530-GO; 97530-GP; 97535-GO; G8978-GP-CK; G8979-GP-CJ; G8987-GO-CJ; G8987-GO-CK; G8988-GO-CI; G8989-GO-CJ; G9168-GN-CL; G9169-GN-CK; J1650; J3010; Q9967

== ENCOUNTER 2017-10-14 18:35 | Inpatient (IN) | payer OTHER ==
--- NOTE | 2017-10-14 18:46 | EDPHY ---
H & P Time Seen by Provider: 10/14/17 18:36 HPI/ROS: CHIEF COMPLAINT: Right elbow redness and pain HISTORY OF PRESENT ILLNESS: Patient is an 87-year-old male with a history of dementia and Parkinson's disease who presents emergency department with right elbow redness and pain. This started earlier today. Staff noticed that he had a mildly increased temperature. Both EMS and the patient did not report any trauma. Patient denies any other complaints. He has no shortness of breath chest pain. No abdominal pain. No nausea or vomiting. Patient denies any numbness or tingling in his hand. Blood glucose was normal. REVIEW OF SYSTEMS: My complete review of systems is negative except as mentioned in the HPI. Past Medical/Surgical History: Includes gout, Parkinson's disease, dementia, pulmonary embolus, deconditioning Social history: Patient lives at the [facility]. Smoking Status: Never smoked Physical Exam: Vitals noted. 37. GENERAL: Well-appearing, in no acute distress, alert. HEENT: Eyes normal to inspection, normal pharynx, no signs of dehydration. NECK: No thyromegaly, no lymphadenopathy, supple. RESPIRATORY: Clear to auscultation bilaterally, no rales, rhonchi or wheezing. CVS: Regular rate and rhythm, no rubs, murmurs, or gallops. ABDOMEN: Soft, nontender, nondistended, no organomegaly. BACK: Normal to inspection, no CVA tenderness. SKIN: Normal color, no rash, warm, dry. No pallor. See extremity exam EXTREMITIES: Patient's right upper extremity has redness surrounding the elbow. There is mild swelling. There is no streaking up the arm. Patient has no discomfort with supination and pronation of his forearm. He has no pain with flexion-extension of the elbow. No pedal edema, no calf tenderness, no Homans sign or cords, no joint swelling. NEURO/PSYCH: Alert and oriented x3, normal mood and affect, normal motor sensory exam. No obvious cranial nerve deficit. Constitutional: Initial Vital Signs Temperature (C) 37.3 C 10/14/17 18:41 Heart Rate 94 10/14/17 18:41 Respiratory Rate 18 10/14/17 18:41 Blood Pressure 148/83 H 10/14/17 18:41 O2 Sat (%) 95 10/14/17 18:41 O2 Delivery Mode Room Air Allergies/Adverse Reactions: No Known Allergies Allergy (Unverified 01/06/15 11:48) Home Medications: Medication Instructions Recorded Colchicine [Colchicine (*)] 0.6 mg PO BID #60 ea 07/12/17 Polyethylene Glycol 3350 10/14/17 Ranitidine HCl 10/14/17 Refresh Classic Eye Drops 10/14/17 Xarelto 10/14/17 Medical Decision Making ED Course/Re-evaluation: In the emergency department I discussed possible etiologies with the patient and his . I answered all her questions. IV was placed. Laboratory studies were obtained. I discussed results with the patient. He will be discharged with care for bursitis. The patient is lactic acid is normal. White count is elevated 14. Previous white count [place] [address]. Patient's chemistry panel was notable for mildly elevated glucose of 114. Patient's total bilirubin is mildly elevated. I discussed the results with the patient and his . She was concerned because the patient was weak and unable to get up from his chair at is living residence. Because of this patient will be admitted for further observation. I discussed the case with Dr. Parker. He will admit the patient. He does not want patient received antibiotics at this time prior to results from the bursal fluid. I obtained fluid from the patient's bursa space. Patient tolerated the procedure well. Laboratory studies are pending. Differential Diagnosis: My differential includes but is not limited to bursitis, gout, septic joint, bacteremia, sepsis, hyperglycemia - Data Points Laboratory Results: Laboratory Results 10/14/17 18:50 10/14/17 18:50 10/14/17 10/14/17 10/14/17 18:50 18:50 18:50 WBC 14.84 10^3/uL H 10^3/uL (3.80-9.50) RBC 4.33 10^6/uL L 10^6/uL (4.40-6.38) Hgb 14.7 g/dL g/dL (13.7-17.5) Hct 43.2 % % (40.0-51.0) MCV 99.8 fL fL (81.5-99.8) MCH 33.9 pg pg (27.9-34.1) MCHC 34.0 g/dL g/dL (32.4-36.7) RDW 12.8 % % (11.5-15.2) Plt Count 207 10^3/uL 10^3/uL (150-400) MPV 8.6 fL L fL (8.7-11.7) Neut % (Auto) 86.3 % H % (39.3-74.2) Lymph % (Auto) 5.5 % L % (15.0-45.0) Estill % (Auto) 7.3 % % (4.5-13.0) Eos % (Auto) 0.3 % L % (0.6-7.6) Baso % (Auto) 0.3 % % (0.3-1.7) Nucleat RBC Rel Count 0.0 % % (0.0-0.2) Absolute Neuts (auto) 12.80 10^3/uL H 10^3/uL (1.70-6.50) Absolute Lymphs (auto) 0.82 10^3/uL L 10^3/uL (1.00-3.00) Absolute Monos (auto) 1.09 10^3/uL H 10^3/uL (0.30-0.80) Absolute Eos (auto) 0.04 10^3/uL 10^3/uL (0.03-0.40) Absolute Basos (auto) 0.04 10^3/uL 10^3/uL (0.02-0.10) Absolute Nucleated RBC 0.00 10^3/uL 10^3/uL (0-0.01) Immature Gran % 0.3 % % (0.0-1.1) Immature Gran # 0.05 10^3/uL 10^3/uL (0.00-0.10) VBG Lactic Acid 1.5 mmol/L mmol/L (0.7-2.1) Sodium 135 mEq/L mEq/L (135-145) Potassium 4.1 mEq/L mEq/L (3.5-5.2) Chloride 108 mEq/L mEq/L (97-110) Carbon Dioxide 14 mEq/l L mEq/l (22-31) Anion Gap 13 mEq/L mEq/L (8-16) BUN 22 mg/dL mg/dL (7-23) Creatinine 1.1 mg/dL mg/dL (0.7-1.3) Estimated GFR > 60 Glucose 114 mg/dL H mg/dL (70-100) Calcium 9.4 mg/dL mg/dL (8.5-10.4) Total Bilirubin 1.5 mg/dL H mg/dL (0.1-1.4) Departure - Departure Disposition: [facility] Inpatient Acute Clinical Impression: Bursitis Qualifiers: Bursitis location: elbow Elbow bursitis location: olecranon bursitis Laterality : right Qualified Code(s): M70.21 - Olecranon bursitis, right elbow Condition: Good Instructions: Elbow Bursitis (ED) Additional Instructions: Take your entire course of antibiotics. Keep your extremity elevated as much as possible. Use an Nghia wrap to can press you elbow. Referrals: Patient,NotPresent [Unknown] - As per Instructions
[2017-10-14 19:20] LABS: PLATELET COUNT 207 10^3/uL (150-400)
[2017-10-14] MEDS ORDERED: NS 500 ML IV ONE (20:31)
[2017-10-14] MEDS ORDERED: ONDANSETRON DISINTEGRATING 4 MG TAB PO PRN (20:36)
[2017-10-14] MEDS ORDERED: ACETAMINOPHEN 325 MG TAB PO PRN (20:36)
[2017-10-14] MEDS ORDERED: oxyCODONE IR 5 MG TAB PO PRN (20:36)
[2017-10-14] MEDS ORDERED: ONDANSETRON 4 MG/2 ML VIAL IVP PRN (20:36)
--- NOTE | 2017-10-14 23:59 | PDGENHP ---
History and Physical - Chief Complaint right elbow pain, swelling - History of Present Illness Source-patient currently ill and fatigued. He also has a history of dementia so not able to provide much history at this time. Patient's and daughter are both at bedside and provides majority of the history. EMR reviewed and case discussed with accepting provider. 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 Patient's report patient was in his usual state of health until approximately 230 when he suddenly developed new onset symptoms of severe pain redness and swelling in the right elbow. Patient without any known fevers. No nausea, vomiting, diarrhea. Patient without any known cough right or rhinorrhea. Patient's last exacerbation of pseudogout was in June 2017 during his hospital stay for PE. Patient's reports that symptoms must have started quite quickly she has some for lunch and by 230 he had developed the redness pain and swelling. Additionally patient has been increasingly more lethargic in the afternoon it and had not been interested in eating or drinking. Patient at baseline is typically quite active. He utilizes a walker for ambulation. Patient has not had any significant increase in confusion from his baseline. He is normally oriented to person place but not time. History Information - Allergies/Home Medication List Allergies/Adverse Reactions: No Known Allergies Allergy (Unverified 01/06/15 11:48) Home Medications: Acetaminophen [Tylenol 325mg (*)] 325 - 650 mg PO Q6 PRN 10/14/17 [Last Taken Unknown] Carboxymethylcellulose 0.5% [Refresh Plus Drops 0.5%] 1 drops EACHEYE DAILY PRN 10/14/17 [Last Taken Unknown] Polyethylene Glycol 3350 [Miralax 17 gm (*)] 17 gm PO DAILY PRN 10/14/17 [Last Taken Unknown] Ranitidine HCl [Zantac] 150 mg PO DAILY PRN 10/14/17 [Last Taken Unknown] Rivaroxaban [Xarelto] 20 mg PO DAILY 10/14/17 [Last Taken 10/14/17] I have personally reviewed and updated: family history, medical history, social history, surgical history - Past Medical History Additional medical history: Dementia, Parkinson's disease, pseudogout, history of PE on chronic anticoagulation with Xarelto, deconditioning - Surgical History Additional surgical history: Hernia repair, carpal tunnel release bilaterally, GreenLight therapy on prostate, arthroscopic knee surgery - Family History Additional family history: Non contributory - Social History Smoking Status: Never smoked Alcohol Use: Rarely (Occasional glass of wine with dinner) Drug Use: None Additional social history: Patient lives at [facility] in [facility]. Patient is . Cor status is DNR DNI Review of Systems Review of Systems: ROS: 10pt was reviewed & negative except for what was stated in HPI & below Constitutional: Denies: chills, fever EENMT: Denies: nose congestion, sore throat Cardiac: Reports: no symptoms Respiratory: Reports: no symptoms Gastrointestinal: Reports: no symptoms Genitourinary: Reports: no symptoms Muscolosketal: Reports: joint pain (Right elbow), joint swelling Skin: Denies: lesions, rash Neurological: Reports: headache. Denies: anxiety, depressed, tremors Physical Exam Physical Exam: Selected Entries 10/14/17 18:41 Heart Rate 94 Respiratory 18 Rate O2 Sat (%) 95 Temperature (C) 37.3 C Blood Pressure 148/83 H Mean Arterial 104 H Pressure (MAP) O2 Delivery Room Air Mode Temperature Oral Source Temp Pulse Resp BP Pulse Ox 36.8 C 84 18 156/97 H 94 10/14/17 23:47 10/14/17 23:47 10/14/17 23:47 10/14/17 23:47 10/14/17 23:47 Constitutional: no apparent distress, appears nourished, chronically ill appearing, other (NAD. Patient lays quietly in bed. He does appear fatigued and is asleep during parts of the interview.) Eyes: PERRL, anicteric sclera, EOMI, No scleral injection Ears, Nose, Mouth, Throat: no oral mucosal ulcers, dry mucous membranes ( Slightly dry), hard of hearing Cardiovascular: regular rate and rhythym, no murmur, rub, or gallop, No systolic murmur, No edema Peripheral Pulses: 2+: dorsalis-pedis (R), dorsalis-pedis (L) Respiratory: no respiratory distress, no rales or rhonchi, clear to auscultation Gastrointestinal: normoactive bowel sounds, soft, non-tender abdomen, no palpable masses, No negro's sign, No hepatosplenomegally, No guarding, No distension Genitourinary: no bladder tenderness, No staley in urethra Skin: warm, normal color, erythema (Right elbow), other (Flushed), No rash Musculoskeletal: joint tenderness (Right elbow, erythema. Bandaged elbow removal was deferred), pain with ROM (Right elbow), generalized weakness Neurologic: AAOx3, sensation intact bilaterally, CN II-XII Intact, No numbness, No facial droop Psychiatric: interacting appropriately (Patient is fatigued and does fall asleep intermittently during the visit.), not anxious, poor insight, poor memory , No anxious, No depressed, No agitated Lymph, Heme, Immunologic: No ecchymoses, No petechiae Lab Data & Imaging Review 10/14/17 18:50 10/14/17 18:50 WBC 14.84 10^3/uL (3.80-9.50) H 10/14/17 18:50 RBC 4.33 10^6/uL (4.40-6.38) L 10/14/17 18:50 Hgb 14.7 g/dL (13.7-17.5) 10/14/17 18:50 Hct 43.2 % (40.0-51.0) 10/14/17 18:50 MCV 99.8 fL (81.5-99.8) 10/14/17 18:50 MCH 33.9 pg (27.9-34.1) 10/14/17 18:50 MCHC 34.0 g/dL (32.4-36.7) 10/14/17 18:50 RDW 12.8 % (11.5-15.2) 10/14/17 18:50 Plt Count 207 10^3/uL (150-400) 10/14/17 18:50 MPV 8.6 fL (8.7-11.7) L 10/14/17 18:50 Neut % (Auto) 86.3 % (39.3-74.2) H 10/14/17 18:50 Lymph % (Auto) 5.5 % (15.0-45.0) L 10/14/17 18:50 [place] % (Auto) 7.3 % (4.5-13.0) 10/14/17 18:50 Eos % (Auto) 0.3 % (0.6-7.6) L 10/14/17 18:50 Baso % (Auto) 0.3 % (0.3-1.7) 10/14/17 18:50 Nucleat RBC Rel Count 0.0 % (0.0-0.2) 10/14/17 18:50 Absolute Neuts (auto) 12.80 10^3/uL (1.70-6.50) H 10/14/17 18:50 Absolute Lymphs (auto) 0.82 10^3/uL (1.00-3.00) L 10/14/17 18:50 Absolute Monos (auto) 1.09 10^3/uL (0.30-0.80) H 10/14/17 18:50 Absolute Eos (auto) 0.04 10^3/uL (0.03-0.40) 10/14/17 18:50 Absolute Basos (auto) 0.04 10^3/uL (0.02-0.10) 10/14/17 18:50 Absolute Nucleated RBC 0.00 10^3/uL (0-0.01) 10/14/17 18:50 Immature Gran % 0.3 % (0.0-1.1) 10/14/17 18:50 Immature Gran # 0.05 10^3/uL (0.00-0.10) 10/14/17 18:50 VBG Lactic Acid 1.5 mmol/L (0.7-2.1) 10/14/17 18:50 Sodium 135 mEq/L (135-145) 10/14/17 18:50 Potassium 4.1 mEq/L (3.5-5.2) 10/14/17 18:50 Chloride 108 mEq/L (97-110) 10/14/17 18:50 Carbon Dioxide 14 mEq/l (22-31) L 10/14/17 18:50 Anion Gap 13 mEq/L (8-16) 10/14/17 18:50 BUN 22 mg/dL (7-23) 10/14/17 18:50 Creatinine 1.1 mg/dL (0.7-1.3) 10/14/17 18:50 Estimated GFR > 60 10/14/17 18:50 Glucose 114 mg/dL (70-100) H 10/14/17 18:50 Calcium 9.4 mg/dL (8.5-10.4) 10/14/17 18:50 Total Bilirubin 1.5 mg/dL (0.1-1.4) H 10/14/17 18:50 Synovial Source SYNOVIAL 10/14/17 20:20 Synovial Color RED (CLS/PALE YL) 10/14/17 20:20 Synovial Appearance CLOUDY (CLEAR) H 10/14/17 20:20 Synovial WBC 3115 /mm3 (0-150) H 10/14/17 20:20 Synovial RBC 85070 /mm3 (0-0) H 10/14/17 20:20 Synovial Neutrophils 86 % (0-25) H 10/14/17 20:20 Synovial Lymphocytes 4 % 10/14/17 20:20 Synov Monos/Macrophage 10 % 10/14/17 20:20 Assessment & Plan Assessment: 87-year-old gentleman with history of Parkinson's disease, mild dementia, pseudogout who presents with sudden onset worsening right elbow pain and swelling. #Bursitis (Acute) - status post aspiration. Differential diagnosis including septic bursitis versus pseudogout. Analysis was incomplete at time of my visit with patient and his family at bedside. I did try to discuss with the patient' s and daughter that crystal analysis is still pending and this could also be related to pseudogout however she is convinced that patient has septic bursitis which is also possibility given patient's leukocytosis and white cell count. Patient has been afebrile however without meeting criteria for severe sepsis. asked multiple times regarding antibiotics. Her concern is that compared to previous episodes of pseudogout patient has never been this lethargic nor have symptoms escalated so quickly. Patient has remained afebrile. He has blood cultures pending and fluid cultures pending. Gram stain is also still pending. I discussed with the case with Dr. Luke ( orthopedics) who also was wondering about crystal analysis and consideration to monitor. We discussed initiation of antibiotic therapy and given patient's age and rapid onset of symptoms plan to cover empirically with Rocephin. Patient does not have any previous history of skin infections or MRSA and so at this time dual coverage is not likely to be needed however will monitor gram stain and cultures closely and adjust antibiotics as appropriate. #Leukocytosis - see above. #Conjunctivitis-patient with very minimal drainage at this time. He has no conjunctival injection. Will utilize scheduled natural tears for now. Patient may require consideration for steroids or antibiotic drops. #Elevated bilirubin - significance unclear and only 0.1 above upper limit of normal.. Patient does not meet severe sepsis criteria and without complaints of abdominal pain. He will be hydrated and bilirubin repeated tomorrow for normalization. #Dementia - patient had baseline. Oriented to person and place but not time. The patient without any agitation. Continue supportive care. #Parkinson's disease - PT OT and bedside walker. #Pseudogout - fluid analysis pending as noted above. #History of PE on Xarelto - patient without any hypoxia or tachypnea. Continue Xarelto 1 med rec available #Deconditioning - therapies as noted above. FEN - IV fluids overnight. Electrolyte monitoring and replacement p.r.n. Diet as tolerated. PPX - on Xarelto. COR - DNR DNI with continued full treatment. Dispo - patient will be admitted inpatient status on the medical floor. Anticipate greater than 2 midnight stay for further testing evaluation and IV for antibiotic treatment. Consult-Dr. Luke with Orthopedics. PT OT
[2017-10-15] MEDS ORDERED: cefTRIAXone 2 GM in STERILE WATER INJ 20 ML IV SCH (00:45)
[2017-10-15] MEDS: NS 1,000 ML IV SCH ×2 (00:49→07:55)
[2017-10-15 04:28] VITALS: RESP 16
[2017-10-15] MEDS: TEARS/DEXTRAN 70/HYPROMELLOSE 15 ML OPHT.BTL EACHEYE SCH ×5 (05:26→20:58)
[2017-10-15 05:34] LABS: PLATELET COUNT 189 10^3/uL (150-400)
--- NOTE | 2017-10-15 06:40 | PDMN ---
Medical Necessity Medical necessity: C/M review: [place] [facility] diseae GRG (Right elbow bursitis): Acute and persistent right elbow bursitis, pain, swelling, erythema S/P aspiration in ED, leukocytosis, conjunctivitis, elevated bilirubin, WBC 14.84, total bilirubin 1.5, right elbow synovial fluid WBCs 3115, synovial crystal analysis, pending requiring Orthopedic consult, Wound Care consult, ongoing IV Ceftriaxone QD, IV fluids, acute inpt PT/OT, comorbid dementia, Parkinson's disease, patient walks with walker at baseline, pseudogout, deconditoning, history of PE on Xarelto and hospitalization 06/2017 for PE. anticipates > 2 MN LOS for ongoing med nec for eval and TX of above.
--- NOTE | 2017-10-15 09:32 | HOSPPROG ---
Hospitalist Progress Note Assessment/Plan: #Olecranon bursitis -Suspect pseudogout. Gram-stain. Appreciate Dr. Luke's consultation. Will stop abx. Already on colchicine outpatient. Will avoid NSAIDs with borderline kidney function. Pred burst #Parkinson's dementia #h/o pseudogout #Leukocytosis: 14-->13 today. -Afebrile, blood/fluid cultures pending. No organisms on gram stain #h/o PE: Xarelto #Diet: regular #DVT ppx: Xarelto #Disp: warrants inpatient admission for acute bursitis, pseudogout flare. Awaiting cultures Subjective: min pain in right elbow, but more swollen below dressing Objective: Vital Signs Temp Pulse Resp BP Pulse Ox 36.6 C 89 16 162/86 H 91 L 10/15/17 07:19 10/15/17 07:19 10/15/17 07:19 10/15/17 07:19 10/15/17 07:19 Laboratory Results 10/15/17 04:46 10/15/17 04:46 - Physical Exam Constitutional: no apparent distress Eyes: other (min discharge), No scleral injection Cardiovascular: regular rate and rhythym Respiratory: no respiratory distress Gastrointestinal: normoactive bowel sounds, soft, non-tender abdomen Genitourinary: no bladder fullness Skin: warm Musculoskeletal: other (right elbow with swelling below bandage. Warm and mild erythema over bursa. FULL ROM. No TTP) Neurologic: CN II-XII Intact Psychiatric: flat affect ICD10 Worksheet Patient Problems: Problems Problem Status Onset Bursitis Acute Palliative care encounter Acute Pulmonary emboli Acute
--- NOTE | 2017-10-15 11:22 | GCON ---
[f rep st] CONSULTATION ORTHOPEDIC CONSULTATION DATE OF CONSULTATION: 10/15/2017 REASON FOR CONSULTATION: Right elbow pain. HISTORY OF PRESENT ILLNESS: The patient is a pleasant 87-year-old gentleman with mild dementia, who lives in a memory care facility, who was brought to the hospital yesterday afternoon with acute onset right elbow pain. This was noticed by his and caregivers. He does have a history of pseudogou t. The elbow was aspirated here in the emergency department and sent for routine Gram stain, culture s and crystals. Crystals are still pending, and I was asked to see the patient for any possible surg ical intervention. PAST MEDICAL HISTORY: Mild dementia, Parkinson's, recent history of a PE, which he is now anticoagul ated with Xarelto. PAST SURGICAL HISTORY: He has previously had knee surgery, hernia repair, carpal tunnel release. SOCIAL HISTORY: He lives in a memory care facility. and daughter are involved in his care and are local. PHYSICAL EXAM: VITAL SIGNS: Today, blood pressure is 162/86, heart rate 89, respiratory rate 16. T emperature is 36.6. EXTREMITIES: Physical exam of the right elbow, he is has a Band-Aid where the e lbow was aspirated. There is some redness and warmth of the bursa of the olecranon of the right elbo w. No swelling involving the elbow joint itself. He has full extension of the elbow, full flexion, 90 degrees pronation/supination. None of these motions are painful. Casey Saw Operator strength is preserved at t he hand. LABORATORY DATA: White count of 13.6 today. It was 14.9 yesterday. His aspiration from the emergen cy department last night showed 2000 white cells, 86 neutrophils. Gram stain is negative for organis ms. It did show 1+ polys. Crystals are still pending. ASSESSMENT: Pseudogout versus septic olecranon bursitis. PLAN: At this point, this appears to be a pseudogout flare. Negative gram stain, with only 1+ polys suggestive of that. Will wait on the crystals. I do think at this point antibiotics just for some coverage may help. I would also initiate treatment for pseudogout and will continue to follow the cu ltures from the aspiration of the elbow. /[id number]/MODL
[2017-10-15] MEDS: predniSONE 20 MG TAB PO SCH (13:56)
[2017-10-15] MEDS ORDERED: CARBOXYMETHYLCELLULOSE 0.5% 0.4 ML DROPERETTE EACHEYE PRN (15:48)
[2017-10-15] MEDS ORDERED: NON-FORMULARY NEW DRUG (Ranitidine Hcl [Zantac] 150 MG) PO PRN (15:48)
[2017-10-15] MEDS ORDERED: POLYETHYLENE GLYCOL 3350 17 GM PKT PO PRN (15:48)
[2017-10-15] MEDS ORDERED: FAMOTIDINE 20 MG TAB PO PRN (15:57)
--- NOTE | 2017-10-15 16:18 | ASMTCMCOM ---
CM Note CM Note Notes: Pt here with acute bursitis, he lives at [facility]. CM spoke w/his , PT recommends inpt rehab but does not feel he can handle that, prefers he go back to [place] with homecare and she will also set up private pay with [employer] ([employer]) Pt's thought that they had hc before with [facility], referral sent. DC Plan: [facility] and homecare (RN/PT/OT) Date Signed: 10/15/2017 04:18 PM Electronically Signed By:Jazz Wong RN
[2017-10-15] MEDS: RIVAROXABAN 20 MG TAB PO SCH (16:30)
[2017-10-15] MEDS: COLCHICINE 0.6 MG CAP/TAB PO SCH (20:58)
[2017-10-16] MEDS: TEARS/DEXTRAN 70/HYPROMELLOSE 15 ML OPHT.BTL EACHEYE SCH ×3 (01:21→11:18)
[2017-10-16 07:35] VITALS: BP 151/67; PULSE 67; TEMP 97.4; O2SAT 92
[2017-10-16] MEDS: predniSONE 20 MG TAB PO SCH (08:03)
[2017-10-16] MEDS: RIVAROXABAN 20 MG TAB PO SCH (08:06)
[2017-10-16] MEDS: COLCHICINE 0.6 MG CAP/TAB PO SCH (08:06)
--- NOTE | 2017-10-16 08:46 | HOSPPROG ---
Hospitalist Progress Note Assessment/Plan: #Olecranon bursitis -due to gout flare as seen on aspiration. Appreciate Dr. Luke's consultation. Will stop abx. -Already on colchicine outpatient. Will avoid NSAIDs with borderline kidney function. Prednisone burst, which has been effective for past flares allopurinol, renally-dosed #Parkinson's dementia: lives at [facility] #h/o pseudogout: colchicine #Leukocytosis: 14. Due to pred -Afebrile, blood/fluid cultures pending. No organisms on gram stain #h/o PE: Xarelto #Diet: regular #DVT ppx: Xarelto #Disp: DC today to [place] [facility] PT/OT and RN. Subjective: less pain in elbow today. Yellow discharge from bith eyes, itchy Objective: Vital Signs Temp Pulse Resp BP Pulse Ox 36.3 C 67 16 151/67 H 92 10/16/17 07:33 10/16/17 07:33 10/16/17 07:33 10/16/17 07:33 10/16/17 07:33 Laboratory Results 10/16/17 04:40 10/16/17 04:40 10/15/17 10/16/17 10/17/17 05:59 05:59 05:59 Intake Total 100 Output Total 104 175 Balance -4 -175 - Physical Exam Constitutional: no apparent distress Eyes: other (yellow discharge BL eyes) Ears, Nose, Mouth, Throat: hard of hearing Cardiovascular: regular rate and rhythym, no murmur, rub, or gallop Respiratory: no respiratory distress Gastrointestinal: normoactive bowel sounds Genitourinary: no bladder fullness, No staley in urethra Musculoskeletal: other (right elbow bursa with swelling, redness. Min pain with extension/flexion) Neurologic: CN II-XII Intact ICD10 Worksheet Patient Problems: Problems Problem Status Onset Bursitis Acute Palliative care encounter Acute Pulmonary emboli Acute
--- NOTE | 2017-10-16 12:10 | PDIAF ---
- Diagnosis Diagnosis: Gout flare Code Status: Do Not Resuscitate - Medication Management Discharge Medications: Medications to Continue on Transfer Acetaminophen [Tylenol 325mg (*)] 325 - 650 mg PO Q6 PRN 10/14/17 [Last Taken Unknown] Carboxymethylcellulose 0.5% [Refresh Plus Drops 0.5%] 1 drops EACHEYE DAILY PRN 10/14/17 [Last Taken Unknown] Polyethylene Glycol 3350 [Miralax 17 gm (*)] 17 gm PO DAILY PRN 10/14/17 [Last Taken Unknown] Ranitidine HCl [Zantac] 150 mg PO DAILY PRN 10/14/17 [Last Taken Unknown] Rivaroxaban [Xarelto] 20 mg PO DAILY 10/14/17 [Last Taken 10/14/17] Allopurinol [Allopurinol 100 MG (*)] 100 mg PO DAILY #30 tab 10/16/17 [Last Taken Unknown] Colchicine [Colchicine (*)] 0.6 mg PO BID PRN #60 ea 10/16/17 [Last Taken 18:30 one dose] Erythromycin 0.5% 1 coy EACHEYE ONCE #14 opht.oint 10/16/17 [Last Taken Unknown] predniSONE 40 mg PO DAILY 3 Days #0 tablet 10/16/17 [Last Taken Unknown] Discharge Medications: Refer to the Discharge Home Medication list for PRN reason. - Orders Services needed: Registered Nurse, Certified Cost Control Analyst, Physical Therapy, Occupational Therapy Diet Recommendation: no restrictions on diet Diet Texture: Regular Texture Diet - Follow Up Care Current Providers and Referrals: Patient,NotPresent [Unknown] - As per Instructions
[2017-10-16] MEDS: ERYTHROMYCIN 0.5% 1 GM OPHT.OINT EACHEYE ONE ×2 (12:15→12:17)
--- NOTE | 2017-10-16 12:45 | GDS ---
[f rep st] DISCHARGE SUMMARY DISCHARGE DIAGNOSES: 1. Acute gout flare. 2. History of pseudogout. 3. Parkinson's dementia. 4. History of pulmonary embolism on Xarelto. 5. Leukocytosis. HISTORY OF PRESENT ILLNESS: A 87 year-old male with history of Parkinson's dementia, pulmonary embolism and pseudogout, was brought in by and daughter , from his memory care unit at [place], with right elbow pain and swelling. These symptoms abruptly developed with severe redness, but without fevers. He did not have any nausea, vomiting, or diarrhea. Last pseudogout flare was in June 2017, during his hospital stay for pulmonary embolism. did note increased lethargy the afternoon of admission, and had not been eating and drinking normally. HOSPITAL COURSE BY PROBLEM: 1. Acute right elbow gout flare: Initial concern for infection. He was evaluated by Dr. Luke with Orthopedics. Gram stain is negative, as well as culture thus far. Crystals were positive for gout. We will treat acutely with prednisone, which has worked in the past for pseudogout. We will start daily allopurinol for prophylaxis after acute flare resolved. 2. Parkinson's dementia lives at [facility]. 3. History of pseudogout. Again, we will dose allopurinol. 4. Leukocytosis. This is likely now due to prednisone. He has remained afebrile, with normal blood and fluid cultures. 5. History of pulmonary embolism on Xarelto. 6. Bacterial conjunctivitis: Provide E-Mycin ointment for 7 days. DISPOSITION: Patient is stable for discharge to [place]. DISCHARGE MEDICATIONS: New medications: 1. Prednisone 40 mg for 3 more days. 2. Allopurinol 100 mg daily. 3. Erythromycin 0.5% ointment for 7 days each eye. FOLLOW UP: With primary care physician. /[id number]/MODL MTDD
--- NOTE | 2017-10-17 13:57 | ASMTCMCOM ---
CM Note CM Note Notes: Patient medicaly cleared for dc back to [facility]. He is to Have additional HHC via [facility] with RN/PT/OT. His family is providing transport. Final orders to [facility] via [employer]scripts. Call to Michelle FAGAN at [place], awaiting return call. CM available should other needs arise. Date Signed: 10/16/2017 12:28 PM Electronically Signed By:Iram Higuera RN
--- NOTE | 2017-10-17 13:58 | ASDISCHSUM ---
Discharge Information Plan Status:Home with Home Health Medically Cleared to Leave:10/15/2017 Discharge Date:10/16/2017 01:48 PM CM D/C Disposition: ADT D/C Disposition:[facility]LY[facility] Projected Discharge Date:10/16/2017 11:00 AM Transportation at D/C: Discharge Delay Reason: Follow-Up Date:10/16/2017 11:00 AM Discharge Slot: Final Diagnosis: Placement Information Referral Type:*Home Health Care Services Referral ID:[id number] Provider Name:[facility] Address 1:[address] Address 2: City:[place] Selection Factors: State:[place] Patient Contact Information Contact Name:DIONICIO Relationship: Address:[address] Work Phone: City:[facility] Phone: State/Zip Code:[place] [address] Email: Financial Information Financial Class:Medicare Advantage Plans Primary Plan Desc:[facility] [employer] PLANS Primary Plan Number:[id number] Secondary Plan Desc: Secondary Plan Number: Assessment Information [facility] CM Progress Note CM Note CM Note Notes: Pt here with acute bursitis, he lives at [facility]. CM spoke w/his , PT recommends inpt rehab but does not feel he can handle that, prefers he go back to [place] with homecare and she will also set up private pay with [employer] ([employer]) Pt's thought that they had hc before with [facility], referral sent. DC Plan: [facility] and homecare (RN/PT/OT) Date Signed: 10/15/2017 04:18 PM Electronically Signed By:Jazz Wong RN [facility] CM Progress Note CM Note CM Note Notes: Patient medicaly cleared for dc back to [facility]. He is to Have additional HHC via [facility] with RN/PT/OT. His family is providing transport. Final orders to [facility] via allscripts. Call to Michelle FAGAN at [place], awaiting return call. CM available should other needs arise. Date Signed: 10/16/2017 12:28 PM Electronically Signed By:Irma Higuera RN Intervention Information
== END 2017-10-16 13:48 | disposition home health service (06) | DRG 554 ==
LOC: EDUNIT# → OBSVTOIN 20:30 → F3E 23:22
PROVIDERS: ADMIT Internal Medicine; ATTEND Internal Medicine
DX: M1A.0210 Idiopathic chronic gout, right elbow, without tophus (tophi) (principal); G20 Parkinson's disease; F02.80 Dementia in other diseases classified elsewhere, unspecified severity, without behavioral disturbance, psychotic disturbance, mood disturbance, and anxiety; H10.89 Other conjunctivitis; Z86.711 Personal history of pulmonary embolism; Z79.01 Long term (current) use of anticoagulants
CPT/HCPCS: 97116-GP; 97162-GP; 97165-GO; 97530-GP; 97535-GO; G8978-GP-CM; G8979-GP-CJ; G8980-GP-CJ; G8987-GO-CL; G8988-GO-CK; J0696; J7512

== ENCOUNTER 2018-01-20 11:17 | Inpatient (IN) | payer OTHER ==
[2018-01-20] MEDS ORDERED: NS 500 ML IV ONE (12:00)
--- NOTE | 2018-01-20 12:00 | EDPHY ---
HPI/HX/ROS/PE/MDM Narrative: CHIEF COMPLAINT: Shortness of breath, abdominal pain, fatigue HPI: The patient is an 87 y/o male with a history of Parkinson's disease, dementia and a pulmonary embolism complaining of shortness of breath and right upper abdominal pain. Per his family, the patient was listless last weekend but improved throughout the week. Last night he was more tired than normal but did not have any pain. Today he was unable to walk, developed abdominal pain, and had a temperature of 99.1 degrees at home. Since arriving to the emergency department he has had more difficulty breathing and states that it hurts to breathe. He has been off of anticoagulants for 2 months. Denies chest pain, nausea, vomiting, urinary or bowel complaints, numbness, paresthesias. This patient is a poor historian and has advanced directives stating DNR. REVIEW OF SYSTEMS: Aside from elements discussed in the HPI, a comprehensive 10-point review of systems was reviewed and is negative. PMH: Parkinson's disease, dementia, pulmonary embolism, gout SOCIAL HISTORY: Resides at [facility], family at bedside, retired PHYSICAL EXAM: General: Patient is alert. ENT: Eyes are normal to inspection. ENT inspection normal. Neck: Normal inspection. Full range of motion. Respiratory: Grunts with respirations. No respiratory distress. Breath sounds normal bilaterally. Cardiovascular: Tachycardic. Strong peripheral pulses. Normal cap refill. Abdomen: Diffuse abdominal tenderness to palpation, upper greater than lower. There are no peritoneal signs. There are normal bowel sounds. Back: Normal to inspection. No tenderness to palpation. Skin: Normal color. No rash. Warm and dry. Extremities: Normal appearance. Full range of motion. Neuro: Oriented x3. Normal motor function. Normal sensory function. ED Course: 1217: EKG was ordered and interpreted by myself. Please see [employer] system for official reading. 1234: Patient's Lactate is elevated at 2.7 1325: Spoke with Dr. Montes, radiologist, patient has bilateral PE's and a left femoral DVT. 1326: Reassessed patient and discussed laboratory and imaging findings. I have also discussed plan for admission which the patient and his family are comfortable with. 80mg SC Lovenox and 4mg IV Morphine given. 1328: Consulted with hospitalist service, Dr. Pineda accepts admission of this patient for his bilateral pulmonary emboli. MDM: This patient presents with signs and symptoms of acute PE. I see no evidence for ACS, sepsis, PNA, arrhythmia or abdominal pathology. - Data Points Imaging Results: Imaging Impressions Chest/Thorax CTA 01/20/18 12:15 Impression: 1. Moderate volume bilateral pulmonary emboli to the lower lobes as well as lingula. 2. Small focal pulmonary infarcts suspected left lower lobe with small left effusion. 3. Mild dependent edema at the lung bases posteriorly. Findings discussed with Colt Romero MD at 13:25 hour, 01/20/2018. Abdomen CT 01/20/18 12:23 Impression: 1. DVT suspected left common femoral vein extending into the left upper leg. 2. No CT evidence of appendicitis, abscess or bowel obstruction. 3. Peripelvic bilateral renal cysts. 4. Possible nonobstructive renal calculi left kidney versus vascular calcifications. Findings discussed with Colt Romero MD at 13:25 hour, 01/20/2018. Imaging: Discussed imaging studies w/ body recall instructor Radiologist, I viewed and interpreted images myself Laboratory Results: Laboratory Results 01/20/18 11:47 01/20/18 11:47 01/20/18 01/20/18 01/20/18 12:45 12:14 12:02 WBC RBC Hgb POC Hgb 15.3 gm/dL gm/dL (13.7-17.5) Hct POC Hct 45 % % (40-51) MCV MCH MCHC RDW Plt Count MPV Neut % (Auto) Lymph % (Auto) [place] % (Auto) Eos % (Auto) Baso % (Auto) Nucleat RBC Rel Count Absolute Neuts (auto) Absolute Lymphs (auto) Absolute Monos (auto) Absolute Eos (auto) Absolute Basos (auto) Absolute Nucleated RBC Immature Gran % Immature Gran # RBC/WBC/PLT Morphology Platelet Estimate PT INR APTT VBG Lactic Acid 2.7 mmol/L H mmol/L (0.7-2.1) POC Sodium 139 mEq/L mEq/L (135-145) Sodium POC Potassium 4.1 mEq/L mEq/L (3.3-5.0) Potassium POC Chloride 104 mEq/L mEq/L (97-110) Chloride Carbon Dioxide Anion Gap POC BUN 20 mg/dL mg/dL (7-23) BUN Creatinine POC Creatinine 1.2 mg/dL mg/dL (0.7-1.3) Estimated GFR Glucose POC Glucose 144 mg/dL H mg/dL (70-100) Calcium Total Bilirubin Conjugated Bilirubin Unconjugated Bilirubin AST ALT Alkaline Phosphatase Troponin I Total Protein Albumin Lipase Urine Color YELLOW Urine Appearance CLEAR Urine pH 5.0 (5.0-7.5) Ur Specific [place] 1.035 H (1.002-1.030) Urine Protein NEGATIVE (NEGATIVE) Urine Ketones NEGATIVE (NEGATIVE) Urine Blood NEGATIVE (NEGATIVE) Urine Nitrate NEGATIVE (NEGATIVE) Urine Bilirubin NEGATIVE (NEGATIVE) Urine Urobilinogen NEGATIVE EU EU (0.2-1.0) Ur Leukocyte Esterase NEGATIVE (NEGATIVE) Urine Glucose NEGATIVE (NEGATIVE) 01/20/18 01/20/18 01/20/18 11:47 11:47 11:47 WBC 18.04 10^3/uL H 10^3/uL (3.80-9.50) RBC 4.71 10^6/uL 10^6/uL (4.40-6.38) Hgb 16.1 g/dL g/dL (13.7-17.5) POC Hgb Hct 45.7 % % (40.0-51.0) POC Hct MCV 97.0 fL fL (81.5-99.8) MCH 34.2 pg H pg (27.9-34.1) MCHC 35.2 g/dL g/dL (32.4-36.7) RDW 12.8 % % (11.5-15.2) Plt Count 253 10^3/uL 10^3/uL (150-400) MPV 8.5 fL L fL (8.7-11.7) Neut % (Auto) 82.3 % H % (39.3-74.2) Lymph % (Auto) 8.3 % L % (15.0-45.0) [place] % (Auto) 8.4 % % (4.5-13.0) Eos % (Auto) 0.2 % L % (0.6-7.6) Baso % (Auto) 0.2 % L % (0.3-1.7) Nucleat RBC Rel Count 0.0 % % (0.0-0.2) Absolute Neuts (auto) 14.85 10^3/uL H 10^3/uL (1.70-6.50) Absolute Lymphs (auto) 1.50 10^3/uL 10^3/uL (1.00-3.00) Absolute Monos (auto) 1.52 10^3/uL H 10^3/uL (0.30-0.80) Absolute Eos (auto) 0.04 10^3/uL 10^3/uL (0.03-0.40) Absolute Basos (auto) 0.04 10^3/uL 10^3/uL (0.02-0.10) Absolute Nucleated RBC 0.00 10^3/uL 10^3/uL (0-0.01) Immature Gran % 0.6 % % (0.0-1.1) Immature Gran # 0.11 10^3/uL H 10^3/uL (0.00-0.10) RBC/WBC/PLT Morphology TNP Platelet Estimate TNP PT 13.4 SEC SEC (12.0-15.0) INR 1.00 (0.83-1.16) APTT 25.6 SEC SEC (23.0-38.0) VBG Lactic Acid POC Sodium Sodium 143 mEq/L mEq/L (135-145) POC Potassium Potassium 4.2 mEq/L mEq/L (3.3-5.0) POC Chloride Chloride 105 mEq/L mEq/L (97-110) Carbon Dioxide 23 mEq/l mEq/l (22-31) Anion Gap 15 mEq/L mEq/L (8-16) POC BUN BUN 22 mg/dL mg/dL (7-23) Creatinine 1.2 mg/dL mg/dL (0.7-1.3) POC Creatinine Estimated GFR 58 Glucose 133 mg/dL H mg/dL (70-100) POC Glucose Calcium 9.8 mg/dL mg/dL (8.5-10.4) Total Bilirubin 2.6 mg/dL H mg/dL (0.1-1.4) Conjugated Bilirubin 0.4 mg/dL mg/dL (0.0-0.5) Unconjugated Bilirubin 2.2 mg/dL H mg/dL (0.0-1.1) AST 34 IU/L IU/L (17-59) ALT 30 IU/L IU/L (21-72) Alkaline Phosphatase 86 IU/L IU/L (38-126) Troponin I < 0.012 ng/mL ng/mL (0.000-0.034) Total Protein 7.7 g/dL g/dL (6.3-8.2) Albumin 4.4 g/dL g/dL (3.5-5.0) Lipase 68 IU/L IU/L (23-300) Urine Color Urine Appearance Urine pH Ur Specific [place] Urine Protein Urine Ketones Urine Blood Urine Nitrate Urine Bilirubin Urine Urobilinogen Ur Leukocyte Esterase Urine Glucose Medications Given: Discontinued Medications Sodium Chloride (Ns) 500 mls @ 0 mls/hr IV EDNOW ONE; Wide Open PRN Reason: Protocol Stop: 01/20/18 12:01 Last Admin: 01/20/18 12:12 Dose: 500 mls Morphine Sulfate (Morphine) 4 mg IVP EDNOW ONE Stop: 01/20/18 13:31 Last Admin: 01/20/18 13:32 Dose: 4 mg Point of Care Test Results: 01/20/18 12:14 POC Sodium 139 POC Potassium 4.1 POC Chloride 104 POC BUN 20 POC Creatinine 1.2 POC Glucose 144 H General Time Seen by Provider: 01/20/18 11:52 Initial Vital Signs: Initial Vital Signs Temperature (C) 37 C 01/20/18 11:39 Heart Rate 116 H 01/20/18 11:39 Respiratory Rate 22 H 01/20/18 11:39 Blood Pressure 160/113 H 01/20/18 11:39 O2 Sat (%) 93 01/20/18 11:39 O2 Delivery Mode Nasal Cannula O2 (L/minute) 2 Allergies/Adverse Reactions: No Known Allergies Allergy (Unverified 01/06/15 11:48) Home Medications: Medication Instructions Recorded Acetaminophen [Tylenol 325mg (*)] 650 mg PO Q4HRS PRN 10/14/17 Carboxymethylcellulose 0.5% 1 drops EACHEYE Q1HR PRN 10/14/17 [Refresh Plus Drops 0.5%] Polyethylene Glycol 3350 [Miralax 17 gm PO DAILY PRN 10/14/17 17 gm (*)] Ranitidine HCl [Zantac] 150 mg PO DAILY PRN 10/14/17 Allopurinol [Allopurinol 100 MG 100 mg PO DAILY #30 tab 10/16/17 (*)] Colchicine [Colchicine (*)] 0.6 mg PO BID PRN #60 ea 10/16/17 Carbidopa/Levo Cr 50/200Mg 1 tab PO DAILY 01/20/18 [SINEMET CR 50/200 MG (*)] Erythromycin 0.5% 1 coy EACHEYE HS 01/20/18 Herbals/Supplements -Info Only 1 ea PO DAILY 01/20/18 Departure - Departure Disposition: [facility] Inpatient Acute Clinical Impression: Bilateral pulmonary embolism, Shortness of breath Left femoral vein DVT Qualifiers: Chronicity: acute Qualified Code(s): I82.412 - Acute embolism and thrombosis of left femoral vein Condition: Fair Report Scribed for: Colt Romero Report Scribed by: Kareen Dee Date of Report: 01/20/18 Time of Report: 12:02 Physician Review and Approval Statement: Portions of this note were transcribed by an ED scribe. I personally performed the history, physical exam, and medical decision making; and confirm the accuracy of the information in the transcribed note.
[2018-01-20 12:01] LABS: PLATELET COUNT 253 10^3/uL (150-400)
[2018-01-20 12:12] LABS: PROTIME(PATIENT) 13.4 SEC (12.0-15.0)
--- NOTE | 2018-01-20 12:19 | CPEKG ---
Heart Rate: 110 RR Interval: 545 P-R Interval: 156 QRSD Interval: 74 QT Interval: 312 QTC Interval: 423 P [place]: 53 QRS [place]: 8 T Wave [place]: 6 EKG Severity - OTHERWISE NORMAL ECG - EKG Impression: SINUS TACHYCARDIA Electronically Signed By: Khurram Winchester 25-Jan-2018 11:48:03
[2018-01-20] MEDS ORDERED: IOPAMIDOL (ISOVUE 370) 100 ML BTL IV ONE (12:22)
[2018-01-20] MEDS ORDERED: ENOXAPARIN 80 MG/0.8 ML SYR SC ONE (13:32)
[2018-01-20] MEDS ORDERED: ONDANSETRON DISINTEGRATING 4 MG TAB PO PRN (14:39)
[2018-01-20] MEDS ORDERED: ACETAMINOPHEN 325 MG TAB PO PRN (14:39)
[2018-01-20] MEDS ORDERED: ALBUTEROL 3 ML DEYVIAL IH PRN (14:39)
[2018-01-20] MEDS ORDERED: PROMETHAZINE HCL 25 MG/ML INJ IVP PRN (14:39)
[2018-01-20] MEDS ORDERED: ONDANSETRON 4 MG/2 ML VIAL IVP PRN (14:39)
--- NOTE | 2018-01-20 15:10 | PDGENHP ---
History and Physical - Chief Complaint chest pain/sob - History of Present Illness 87 yo M with PMH of dementia as well as PE off of AC x 2 months presenting with sob and upper abdominal/chest pain. Per family present at bedside patient was more somnolent and less interactive than usual for the last week. Today he began complaining of pain in his upper left abdomen and lower chest associated with sob. At the time of my evaluation patient is only minimally interactive and the majority of this history is obtained per chart review and from patients daughter present at bedside. She notes prior to today he did not complaint of sob, chest pain, fever or chills. Other than increasing somnolence in the last week she has not noticed any change in his usual state of health. History Information - Allergies/Home Medication List Allergies/Adverse Reactions: No Known Allergies Allergy (Unverified 01/06/15 11:48) Home Medications: Acetaminophen [Tylenol 325mg (*)] 650 mg PO Q4HRS PRN 10/14/17 [Last Taken Unknown] Carboxymethylcellulose 0.5% [Refresh Plus Drops 0.5%] 1 drops EACHEYE Q1HR PRN 10/14/17 [Last Taken Unknown] Polyethylene Glycol 3350 [Miralax 17 gm (*)] 17 gm PO DAILY PRN 10/14/17 [Last Taken 01/20/18] Ranitidine HCl [Zantac] 150 mg PO DAILY PRN 10/14/17 [Last Taken Unknown] Carbidopa/Levo Cr 50/200Mg [SINEMET CR 50/200 MG (*)] 1 tab PO DAILY 01/20/18 [ Last Taken 01/20/18] Erythromycin 0.5% 1 coy EACHEYE HS 01/20/18 [Last Taken 01/19/18] Herbals/Supplements -Info Only 1 ea PO DAILY 01/20/18 [Last Taken Unknown] I have personally reviewed and updated: family history, medical history, social history, surgical history - Past Medical History dementia, pulmonary embolism (off of AC x 2 months) Additional medical history: Dementia, Parkinson's disease, pseudogout, history of PE, deconditioning, nephrolithiasis - Surgical History Additional surgical history: Hernia repair, carpal tunnel release bilaterally, GreenLight therapy on prostate, arthroscopic knee surgery - Family History Positive for: non-pertinent Additional family history: Non contributory - Social History Smoking Status: Never smoked Alcohol Use: None Drug Use: None Additional social history: Patient lives at [facility] in the [facility] Patient is . Cor status is DNR DNI Review of Systems Review of Systems: unobtainable 2/2 mental status Physical Exam Physical Exam: Temp Pulse Resp BP Pulse Ox 37.2 C 99 20 127/74 H 94 01/20/18 14:36 01/20/18 14:36 01/20/18 14:36 01/20/18 14:36 01/20/18 14:36 O2 (L/minute) 2 Constitutional: no apparent distress, chronically ill appearing Eyes: PERRL, anicteric sclera Ears, Nose, Mouth, Throat: moist mucous membranes, poor dentition Cardiovascular: regular rate and rhythym, no murmur, rub, or gallop Respiratory: no respiratory distress, no rales or rhonchi Gastrointestinal: normoactive bowel sounds, soft, non-tender abdomen Skin: warm, normal color Musculoskeletal: full muscle strength Neurologic: CN II-XII Intact, No AAOx3 Psychiatric: other (somonlent ) Lab Data & Imaging Review 01/20/18 11:47 01/20/18 11:47 WBC 18.04 10^3/uL (3.80-9.50) H 01/20/18 11:47 RBC 4.71 10^6/uL (4.40-6.38) 01/20/18 11:47 Hgb 16.1 g/dL (13.7-17.5) 01/20/18 11:47 POC Hgb 15.3 gm/dL (13.7-17.5) 01/20/18 12:14 Hct 45.7 % (40.0-51.0) 01/20/18 11:47 POC Hct 45 % (40-51) 01/20/18 12:14 MCV 97.0 fL (81.5-99.8) 01/20/18 11:47 MCH 34.2 pg (27.9-34.1) H 01/20/18 11:47 MCHC 35.2 g/dL (32.4-36.7) 01/20/18 11:47 RDW 12.8 % (11.5-15.2) 01/20/18 11:47 Plt Count 253 10^3/uL (150-400) 01/20/18 11:47 MPV 8.5 fL (8.7-11.7) L 01/20/18 11:47 Neut % (Auto) 82.3 % (39.3-74.2) H 01/20/18 11:47 Lymph % (Auto) 8.3 % (15.0-45.0) L 01/20/18 11:47 [place] % (Auto) 8.4 % (4.5-13.0) 01/20/18 11:47 Eos % (Auto) 0.2 % (0.6-7.6) L 01/20/18 11:47 Baso % (Auto) 0.2 % (0.3-1.7) L 01/20/18 11:47 Nucleat RBC Rel Count 0.0 % (0.0-0.2) 01/20/18 11:47 Absolute Neuts (auto) 14.85 10^3/uL (1.70-6.50) H 01/20/18 11:47 Absolute Lymphs (auto) 1.50 10^3/uL (1.00-3.00) 01/20/18 11:47 Absolute Monos (auto) 1.52 10^3/uL (0.30-0.80) H 01/20/18 11:47 Absolute Eos (auto) 0.04 10^3/uL (0.03-0.40) 01/20/18 11:47 Absolute Basos (auto) 0.04 10^3/uL (0.02-0.10) 01/20/18 11:47 Absolute Nucleated RBC 0.00 10^3/uL (0-0.01) 01/20/18 11:47 Immature Gran % 0.6 % (0.0-1.1) 01/20/18 11:47 Immature Gran # 0.11 10^3/uL (0.00-0.10) H 01/20/18 11:47 RBC/WBC/PLT Morphology TNP 01/20/18 11:47 Platelet Estimate TNP 01/20/18 11:47 PT 13.4 SEC (12.0-15.0) 01/20/18 11:47 INR 1.00 (0.83-1.16) 01/20/18 11:47 APTT 25.6 SEC (23.0-38.0) 01/20/18 11:47 VBG Lactic Acid 2.7 mmol/L (0.7-2.1) H 01/20/18 12:02 POC Sodium 139 mEq/L (135-145) 01/20/18 12:14 Sodium 143 mEq/L (135-145) 01/20/18 11:47 POC Potassium 4.1 mEq/L (3.3-5.0) 01/20/18 12:14 Potassium 4.2 mEq/L (3.3-5.0) 01/20/18 11:47 POC Chloride 104 mEq/L (97-110) 01/20/18 12:14 Chloride 105 mEq/L (97-110) 01/20/18 11:47 Carbon Dioxide 23 mEq/l (22-31) 01/20/18 11:47 Anion Gap 15 mEq/L (8-16) 01/20/18 11:47 POC BUN 20 mg/dL (7-23) 01/20/18 12:14 BUN 22 mg/dL (7-23) 01/20/18 11:47 Creatinine 1.2 mg/dL (0.7-1.3) 01/20/18 11:47 POC Creatinine 1.2 mg/dL (0.7-1.3) 01/20/18 12:14 Estimated GFR 58 01/20/18 11:47 Glucose 133 mg/dL (70-100) H 01/20/18 11:47 POC Glucose 144 mg/dL (70-100) H 01/20/18 12:14 Calcium 9.8 mg/dL (8.5-10.4) 01/20/18 11:47 Total Bilirubin 2.6 mg/dL (0.1-1.4) H 01/20/18 11:47 Conjugated Bilirubin 0.4 mg/dL (0.0-0.5) 01/20/18 11:47 Unconjugated Bilirubin 2.2 mg/dL (0.0-1.1) H 01/20/18 11:47 AST 34 IU/L (17-59) 01/20/18 11:47 ALT 30 IU/L (21-72) 01/20/18 11:47 Alkaline Phosphatase 86 IU/L (38-126) 01/20/18 11:47 Troponin I < 0.012 ng/mL (0.000-0.034) 01/20/18 11:47 Total Protein 7.7 g/dL (6.3-8.2) 01/20/18 11:47 Albumin 4.4 g/dL (3.5-5.0) 01/20/18 11:47 Lipase 68 IU/L (23-300) 01/20/18 11:47 Urine Color YELLOW 01/20/18 12:45 Urine Appearance CLEAR 01/20/18 12:45 Urine pH 5.0 (5.0-7.5) 01/20/18 12:45 Ur Specific [place] 1.035 (1.002-1.030) H 01/20/18 12:45 Urine Protein NEGATIVE (NEGATIVE) 01/20/18 12:45 Urine Ketones NEGATIVE (NEGATIVE) 01/20/18 12:45 Urine Blood NEGATIVE (NEGATIVE) 01/20/18 12:45 Urine Nitrate NEGATIVE (NEGATIVE) 01/20/18 12:45 Urine Bilirubin NEGATIVE (NEGATIVE) 01/20/18 12:45 Urine Urobilinogen NEGATIVE EU (0.2-1.0) 01/20/18 12:45 Ur Leukocyte Esterase NEGATIVE (NEGATIVE) 01/20/18 12:45 Urine Glucose NEGATIVE (NEGATIVE) 01/20/18 12:45 Visualized and Interpreted imaging results: Yes Interpretation: cta: bll PE. abd lledvt ct: dvt left. US: Visualized and Interpreted EKG results: Yes EKG additional interpertation: sinus tachycardia Assessment & Plan Assessment: Pulmonary emboli (Acute) Bilateral pulmonary embolism (Acute) Shortness of breath (Acute) Left femoral vein DVT (Acute) 87 yo M with hx of dementia and prior PE approximately 7 months ago admitted with acute bilateral PE # acute recurrent bilateral PE: in setting of being off of AC for the last 2 months, HD stable but by PESI score is high risk. Will admit to PCU on tele, continue lovenox for now and likely transition to xarelto in am which he was on previously. Does have large LLE DVT present as well but asymptomatic. # chest/abdominal pain: 2/2 above, has required morphine for the pain # dementia: largely at baseline currently, resides in memory care # PD: as above, stable # IP status, high risk by PESI score Patient new to my care. Old records reviewed and summarized as above. Care plan reviewed with ER doctor as e
--- NOTE | 2018-01-20 16:43 | PDMN ---
Medical Necessity Medical necessity: Pt meets INPT criteria per MD and [facility] M-290 Pulmonary Embolism (bilateral pulmonary emboli, small focal pulmonary infarcts suspected LLL w small effusion, L femoral vein DVT, shortness of breath, tachycardia, elevated lactic acid; est. LOS >2 MN).
[2018-01-20] MEDS: ENOXAPARIN 80 MG/0.8 ML SYR SC SCH (23:01)
[2018-01-21 04:27] LABS: PLATELET COUNT 206 10^3/uL (150-400)
[2018-01-21] MEDS ORDERED: ACETAMINOPHEN 650 MG SUPP PR PRN (08:58)
[2018-01-21] MEDS: ACETAMINOPHEN 325 MG TAB PO PRN ×2 (10:52→20:48)
[2018-01-21] MEDS: ENOXAPARIN 80 MG/0.8 ML SYR SC SCH ×2 (10:54→20:47)
[2018-01-21] MEDS: NS 1,000 ML IV SCH (11:03)
--- NOTE | 2018-01-21 15:35 | HOSPPROG ---
Hospitalist Progress Note Assessment/Plan: 87 yo M with hx of dementia and prior PE approximately 7 months ago admitted with acute bilateral PE # acute recurrent bilateral PE: in setting of being off of AC for the last 2 months, HD stable but by PESI score is high risk. Doing well overnight, continued on lovenox for now. Patient previously on xarelto and likely will transition to this prior to dc. # acute hypoxic respiratory failure: requiring 2L to maintain o2 sats in the low 90s, 2/2 above as well as likely component of atelectasis as patient is not moving much # chest/abdominal pain: 2/2 above, has required morphine for the pain, improved # dementia: largely at baseline currently, resides in memory care # PD: as above, stable # IP status, high risk by PESI score Care plan reviewed with CM and patients present at bedside Subjective: no acute overnight events, patient currently more alert though still quite somnolent Objective: Vital Signs Temp Pulse Resp BP Pulse Ox 36.8 C 89 20 135/82 H 92 01/21/18 12:00 01/21/18 12:00 01/21/18 12:00 01/21/18 12:00 01/21/18 12:00 Laboratory Results 01/21/18 03:12 01/20/18 01/21/18 01/22/18 05:59 05:59 05:59 Intake Total [id number] Output Total 200 1 Balance 645108 -1 PT 13.4 SEC (12.0-15.0) 01/20/18 11:47 INR 1.00 (0.83-1.16) 01/20/18 11:47 Constitutional: no apparent distress, chronically ill appearing Eyes: PERRL, anicteric sclera Ears, Nose, Mouth, Throat: moist mucous membranes, poor dentition Cardiovascular: regular rate and rhythym, no murmur, rub, or gallop Respiratory: no respiratory distress, no rales or rhonchi Gastrointestinal: normoactive bowel sounds, soft, non-tender abdomen Skin: warm, normal color Musculoskeletal: full muscle strength Neurologic: CN II-XII Intact, No AAOx3 Psychiatric: other (somonlent ) - Time Spent With Patient Time Spent with Patient: greater than 35 minutes Time Spent with Patient: Greater than 35 minutes spent on this patients care, greater than 50% of time spent counseling, educating, and coordinating care regarding the above mentioned plan. ICD10 Worksheet Patient Problems: Problems Problem Status Onset Bilateral pulmonary embolism Acute Left femoral vein DVT Acute Pulmonary emboli Acute Shortness of breath Acute Bursitis Acute Palliative care encounter Acute
--- NOTE | 2018-01-21 17:38 | ASMTCMCOM ---
CM Note CM Note Notes: Pt admitted w/bilat PE's and L groin clot. He lives at [facility] which [facility] but at different location. CM met w/his , Ricky, who lives in their home but she is very involved. Pt will likely need C RN and possibly PT (waiting for PT rec). Referrals sent. Ricky concerned about how much care/help he is needing right now. She will talk w/[facility] and see what level of care they can provide and she can hire private duty if needed. She does not want to send him to SNF. CM will follow. Date Signed: 01/21/2018 05:38 PM Electronically Signed By:Kay Borja RN
[2018-01-21] MEDS ORDERED: CARBOXYMETHYLCELLULOSE 0.5% 0.4 ML DROPERETTE EACHEYE PRN (19:07)
[2018-01-21] MEDS: FAMOTIDINE 20 MG TAB PO SCH (20:48)
[2018-01-21] MEDS ORDERED: NS 500 ML IV ONE (23:18)
[2018-01-21] MEDS: ERYTHROMYCIN 0.5% 1 GM OPHT.OINT EACHEYE SCH (23:37)
[2018-01-22] MEDS: oxyCODONE IR 5 MG TAB PO PRN ×2 (00:07→09:25)
[2018-01-22] MEDS: ENOXAPARIN 80 MG/0.8 ML SYR SC SCH ×2 (09:25→21:05)
[2018-01-22] MEDS: ALLOPURINOL 100 MG TAB PO SCH (09:25)
[2018-01-22] MEDS: POLYETHYLENE GLYCOL 3350 17 GM PKT PO PRN (09:25)
[2018-01-22] MEDS: FAMOTIDINE 20 MG TAB PO SCH ×2 (09:25→21:05)
[2018-01-22] MEDS: CARBIDOPA/LEVO CR 50 MG/200 MG TAB PO SCH (09:25)
[2018-01-22] MEDS: NS 1,000 ML IV SCH (12:49)
--- NOTE | 2018-01-22 15:41 | HOSPPROG ---
Hospitalist Progress Note Assessment/Plan: 87 yo M with hx of dementia and prior PE approximately 7 months ago admitted with acute bilateral PE # acute recurrent bilateral PE: in setting of being off of AC for the last 2 months, HD stable but by PESI score is high risk. Doing well overnight, continued on lovenox for now. Patient previously on xarelto and likely will transition to this prior to dc. # acute hypoxic respiratory failure: requiring 2L to maintain o2 sats in the low 90s, 2/2 above as well as likely component of atelectasis as patient is not moving much # weakness/incontinence: patient increasingly weak since above has occurred, per family he has been declining rapidly over the last year due to his PD. At this point, do not think he will be able to return to memory care unit and plan is for transition to snf--looking into options of facilities with family # chest/abdominal pain: 2/2 above, has required morphine for the pain, improved # dementia: largely at baseline currently, resides in memory care # PD: as above, making his deconditioning more challenging # IP status, high risk by PESI score Care plan reviewed with CM and patients and daughter present at bedside Subjective: no significant overnight events, did require oxycodone for pain today and is now increasingly somnolent Objective: Vital Signs Temp Pulse Resp BP Pulse Ox 36.3 C 89 17 126/64 H 90 L 01/22/18 11:36 01/22/18 11:36 01/22/18 11:36 01/22/18 11:36 01/22/18 11:36 Laboratory Results 01/21/18 03:12 01/21/18 01/22/18 01/23/18 05:59 05:59 05:59 Intake Total [id number] 8556 Output Total 200 1 Balance [id number] PT 13.4 SEC (12.0-15.0) 01/20/18 11:47 INR 1.00 (0.83-1.16) 01/20/18 11:47 Constitutional: no apparent distress, chronically ill appearing Eyes: PERRL, anicteric sclera Ears, Nose, Mouth, Throat: moist mucous membranes, poor dentition Cardiovascular: regular rate and rhythym, no murmur, rub, or gallop Respiratory: no respiratory distress, no rales or rhonchi Gastrointestinal: normoactive bowel sounds, soft, non-tender abdomen Skin: warm, normal color Musculoskeletal: full muscle strength Neurologic: CN II-XII Intact, No AAOx3 Psychiatric: other (somonlent ) - Time Spent With Patient Time Spent with Patient: greater than 35 minutes Time Spent with Patient: Greater than 35 minutes spent on this patients care, greater than 50% of time spent counseling, educating, and coordinating care regarding the above mentioned plan. ICD10 Worksheet Patient Problems: Problems Problem Status Onset Bilateral pulmonary embolism Acute Left femoral vein DVT Acute Pulmonary emboli Acute Shortness of breath Acute Bursitis Acute Palliative care encounter Acute
[2018-01-22] MEDS: ACETAMINOPHEN 500 MG TAB PO SCH (18:04)
[2018-01-22] MEDS: ERYTHROMYCIN 0.5% 1 GM OPHT.OINT EACHEYE SCH (21:04)
[2018-01-22] MEDS: COLCHICINE 0.6 MG CAP/TAB PO PRN (21:05)
[2018-01-23] MEDS: ACETAMINOPHEN 500 MG TAB PO SCH ×4 (01:01→23:29)
[2018-01-23] MEDS: ALLOPURINOL 100 MG TAB PO SCH (08:58)
[2018-01-23] MEDS: ENOXAPARIN 80 MG/0.8 ML SYR SC SCH (08:58)
[2018-01-23] MEDS: FAMOTIDINE 20 MG TAB PO SCH ×2 (08:58→21:11)
[2018-01-23] MEDS: CARBIDOPA/LEVO CR 50 MG/200 MG TAB PO SCH (08:58)
--- NOTE | 2018-01-23 14:21 | HOSPPROG ---
Hospitalist Progress Note Assessment/Plan: 87 yo M with hx of dementia and prior PE approximately 7 months ago admitted with acute bilateral PE # acute recurrent bilateral PE: in setting of being off of AC for the last 2 months, HD stable but by PESI score is high risk. Doing well, continued on lovenox, will transition to xarelto in am. # acute hypoxic respiratory failure: requiring 2L to maintain o2 sats in the low 90s, 2/2 above as well as likely component of atelectasis as patient is not moving much # acute encephalopathy: suspect toxic metabolic in setting of hypoxia and acute PE, today much improved and seems back to baseline # weakness/incontinence: patient increasingly weak since above has occurred, per family he has been declining rapidly over the last year due to his PD. At this point, do not think he will be able to return to memory care unit and plan is for transition to snf--looking into options of facilities with family # chest/abdominal pain: 2/2 above, has required morphine for the pain, improved # dementia: largely at baseline currently, resides in memory care # PD: as above, making his deconditioning more challenging # IP status, high risk by PESI score Subjective: no significant overnight events, much more alert and interactive today Objective: Vital Signs Temp Pulse Resp BP Pulse Ox 36.6 C 86 14 141/77 H 96 01/23/18 11:37 01/23/18 11:37 01/23/18 11:37 01/23/18 11:37 01/23/18 11:37 Laboratory Results 01/21/18 03:12 01/22/18 01/23/18 01/24/18 05:59 05:59 05:59 Intake Total 2616 2550 200 Output Total 1 Balance 2615 2550 200 PT 13.4 SEC (12.0-15.0) 01/20/18 11:47 INR 1.00 (0.83-1.16) 01/20/18 11:47 Constitutional: no apparent distress, chronically ill appearing Eyes: PERRL, anicteric sclera Ears, Nose, Mouth, Throat: moist mucous membranes, poor dentition Cardiovascular: regular rate and rhythym, no murmur, rub, or gallop Respiratory: no respiratory distress, no rales or rhonchi Gastrointestinal: normoactive bowel sounds, soft, non-tender abdomen Skin: warm, normal color Musculoskeletal: full muscle strength Neurologic: CN II-XII Intact, No AAOx3 Psychiatric: other (somonlent ) ICD10 Worksheet Patient Problems: Problems Problem Status Onset Bilateral pulmonary embolism Acute Left femoral vein DVT Acute Pulmonary emboli Acute Shortness of breath Acute Bursitis Acute Palliative care encounter Acute
--- NOTE | 2018-01-23 14:44 | ASMTCMCOM ---
CM Note CM Note Notes: Discussed pt w/Dr Martinez and met w/pt and . They are now interested in SNF. has talked w/staff at [facility] where pt lives. Pt is doing better but still requiring more assistance than they can provide at [place]. Pt does have dementia. First choice for SNF is [facility] and 2nd choice [facility]. Referrals sent to both. Pt may possibly be ready for dc tomorrow. CM will follow. Date Signed: 01/23/2018 02:43 PM Electronically Signed By:Kay Borja RN
[2018-01-23] MEDS: RIVAROXABAN 15 MG TAB PO SCH (18:06)
[2018-01-23] MEDS: COLCHICINE 0.6 MG CAP/TAB PO PRN (21:11)
[2018-01-23] MEDS: ERYTHROMYCIN 0.5% 1 GM OPHT.OINT EACHEYE SCH (21:14)
[2018-01-24 03:46] LABS: PLATELET COUNT 233 10^3/uL (150-400)
[2018-01-24] MEDS: ACETAMINOPHEN 500 MG TAB PO SCH ×3 (09:36→23:50)
[2018-01-24] MEDS: FAMOTIDINE 20 MG TAB PO SCH ×2 (09:37→20:13)
[2018-01-24] MEDS: RIVAROXABAN 15 MG TAB PO SCH ×2 (09:37→17:52)
[2018-01-24] MEDS: ALLOPURINOL 100 MG TAB PO SCH (09:37)
[2018-01-24] MEDS: CARBIDOPA/LEVO CR 50 MG/200 MG TAB PO SCH (09:37)
[2018-01-24] MEDS: POLYETHYLENE GLYCOL 3350 17 GM PKT PO PRN (12:23)
--- NOTE | 2018-01-24 15:55 | HOSPPROG ---
Hospitalist Progress Note Assessment/Plan: 87 yo M with hx of dementia and prior PE approximately 7 months ago admitted with acute bilateral PE # acute recurrent bilateral PE: in setting of being off of AC for the last 2 months, HD stable but by PESI score is high risk. Transitioned to xarelto # acute hypoxic respiratory failure: weaning off of oxygen, 2/2 above, improving # acute encephalopathy: suspect toxic metabolic in setting of hypoxia and acute PE, continues to have some waxing and waning mentation--today again more somnolent. Hypoactive delirium could be contributing as well. # weakness/incontinence: patient increasingly weak since above has occurred, per family he has been declining rapidly over the last year due to his PD. At this point, do not think he will be able to return to memory care unit and plan is for transition to snf # chest/abdominal pain: 2/2 above, has required morphine for the pain, improved # dementia: largely at baseline currently, resides in memory care # PD: as above, making his deconditioning more challenging # IP status, high risk by PESI score # dispo: will likely dc in coming 1-2 days to SNF, looking into availability to [facility] Subjective: no significant overnight events, patient sleepy today but no complaints Objective: Vital Signs Temp Pulse Resp BP Pulse Ox 36.8 C 80 18 123/63 H 91 L 01/24/18 11:44 01/24/18 11:44 01/24/18 11:44 01/24/18 11:44 01/24/18 11:44 Laboratory Results 01/24/18 03:23 01/23/18 01/24/18 01/25/18 05:59 05:59 05:59 Intake Total 2550 1300 Output Total 350 Balance 2550 950 PT 13.4 SEC (12.0-15.0) 01/20/18 11:47 INR 1.00 (0.83-1.16) 01/20/18 11:47 Constitutional: no apparent distress, chronically ill appearing Eyes: PERRL, anicteric sclera Ears, Nose, Mouth, Throat: moist mucous membranes, poor dentition Cardiovascular: regular rate and rhythym, no murmur, rub, or gallop Respiratory: no respiratory distress, no rales or rhonchi Gastrointestinal: normoactive bowel sounds, soft, non-tender abdomen Skin: warm, normal color Musculoskeletal: full muscle strength Neurologic: CN II-XII Intact, No AAOx3 Psychiatric: other (somonlent ) ICD10 Worksheet Patient Problems: Problems Problem Status Onset Bilateral pulmonary embolism Acute Left femoral vein DVT Acute Pulmonary emboli Acute Shortness of breath Acute Bursitis Acute Palliative care encounter Acute
[2018-01-24] MEDS: ERYTHROMYCIN 0.5% 1 GM OPHT.OINT EACHEYE SCH (20:13)
[2018-01-25] MEDS: NS 1,000 ML IV SCH ×2 (00:52→16:01)
[2018-01-25] MEDS: ALLOPURINOL 100 MG TAB PO SCH (09:22)
[2018-01-25] MEDS: CARBIDOPA/LEVO CR 50 MG/200 MG TAB PO SCH (09:22)
[2018-01-25] MEDS: FAMOTIDINE 20 MG TAB PO SCH ×2 (09:22→21:41)
[2018-01-25] MEDS: RIVAROXABAN 15 MG TAB PO SCH ×2 (09:22→18:09)
[2018-01-25] MEDS: ACETAMINOPHEN 500 MG TAB PO SCH ×2 (09:22→18:09)
--- NOTE | 2018-01-25 13:03 | HOSPPROG ---
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, gait instability, deconditioning, urinary incontinence # severe fall risk inpatient with need for ongoing anticoagulation # dispo: will likely dc in coming 1-2 days to SNF, looking into availability to [facility] PLANS: * at this time would recommend indefinite anticoagulation unless he has a severe symptomatic bleeding problems * Continue to watch his encephalopathy, once it is further improved would consider discharge hopefully in the next couple of days * Consider palliative care * Fall risk precautions * Encourage food intake as able * Have discontinued narcotics and would avoid all other sedating meds as able Patient seen by me today on hospitalist rounds as well as multidisciplinary rounds SUBJECTIVE: He has been very somnolent today but is arousable He denies any pain or discomfort Per his he remains more confused than normal and sleeping a lot thru the day Did stand w assist of PT but unable to walk OBJECTIVE Vitals reviewed: Some hypertension otherwise stable vitals without fever Superannuation Clerk, my review: Sinus rhythm Exam: Very somnolent today still but arousable skin warm dry color ok resps not labored lungs clear BSs heart regular abd soft nondistended nontender, bowel sounds present limbs warm, no edema iv site ok Objective: Vital Signs Temp Pulse Resp BP Pulse Ox 36.7 C 79 16 154/79 H 94 01/25/18 12:00 01/25/18 12:00 01/25/18 12:00 01/25/18 12:00 01/25/18 12:00 Laboratory Results 01/24/18 03:23 01/24/18 15:55 01/24/18 01/25/18 01/26/18 06:59 06:59 06:59 Intake Total 1300 1671 Output Total 350 Balance 950 1671 PT 13.4 SEC (12.0-15.0) 01/20/18 11:47 INR 1.00 (0.83-1.16) 01/20/18 11:47 - Time Spent With Patient Time Spent with Patient: greater than 35 minutes Time Spent with Patient: Greater than 35 minutes spent on this patients care, greater than 50% of time spent counseling, educating, and coordinating care regarding the above mentioned plan. ICD10 Worksheet Patient Problems: Problems Problem Status Onset Bilateral pulmonary embolism Acute Left femoral vein DVT Acute Pulmonary emboli Acute Shortness of breath Acute Bursitis Acute Palliative care encounter Acute
--- NOTE | 2018-01-25 15:31 | ASMTCMCOM ---
CM Note CM Note Notes: 01/25/2018 Case Management Note Pt visited by Fabi from [facility]. Fabi able to accept pt. visited with Fabi as well. Case Management d/c poc: to [facility] Case Management to follow. Date Signed: 01/25/2018 03:30 PM Electronically Signed By:Steffi Kennedy RN
[2018-01-25] MEDS: ERYTHROMYCIN 0.5% 1 GM OPHT.OINT EACHEYE SCH (21:41)
[2018-01-26] MEDS: ACETAMINOPHEN 500 MG TAB PO SCH ×4 (05:52→22:10)
--- NOTE | 2018-01-26 07:53 | HOSPPROG ---
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, gait instability, deconditioning, urinary incontinence # severe fall risk inpatient with need for ongoing anticoagulation # dispo: if encephalopathy continues to resolve and otherwise stable, consider DC 01/27 or 01/28 PLANS: * at this time would recommend indefinite anticoagulation unless he has a severe symptomatic bleeding problems * Continue to watch his encephalopathy, once it is further improved would consider discharge hopefully in the next couple of days * Would allow permissive hypertension due to his parkinsonism and fall risk * Consider palliative care * Fall risk precautions * Encourage food intake as able * Have discontinued narcotics and would avoid all other sedating meds as able Patient seen by me today on hospitalist rounds as well as multidisciplinary rounds SUBJECTIVE: Arouses easily no pain or discomfort OBJECTIVE Vitals reviewed: Some hypertension otherwise stable vitals without fever Open Cut Examiner, my review: Sinus rhythm Exam: Very somnolent today still but arousable skin warm dry color ok resps not labored lungs clear BSs heart regular abd soft nondistended nontender, bowel sounds present limbs warm, no edema iv site ok Objective: Vital Signs Temp Pulse Resp BP Pulse Ox 36.5 C 80 20 177/104 H 95 01/26/18 03:32 01/26/18 03:32 01/26/18 03:32 01/26/18 03:32 01/26/18 03:32 Laboratory Results 01/24/18 03:23 01/24/18 15:55 01/25/18 01/26/18 01/27/18 06:59 06:59 06:59 Intake Total 1671 1350 Output Total 650 Balance 1671 700 PT 13.4 SEC (12.0-15.0) 01/20/18 11:47 INR 1.00 (0.83-1.16) 01/20/18 11:47 - Time Spent With Patient Time Spent with Patient: greater than 35 minutes Time Spent with Patient: Greater than 35 minutes spent on this patients care, greater than 50% of time spent counseling, educating, and coordinating care regarding the above mentioned plan. ICD10 Worksheet Patient Problems: Problems Problem Status Onset Bilateral pulmonary embolism Acute Left femoral vein DVT Acute Pulmonary emboli Acute Shortness of breath Acute Bursitis Acute Palliative care encounter Acute
[2018-01-26] MEDS: FAMOTIDINE 20 MG TAB PO SCH ×2 (08:04→22:10)
[2018-01-26] MEDS: RIVAROXABAN 15 MG TAB PO SCH ×2 (08:04→18:31)
[2018-01-26] MEDS: ALLOPURINOL 100 MG TAB PO SCH (08:05)
[2018-01-26] MEDS: CARBIDOPA/LEVO CR 50 MG/200 MG TAB PO SCH (08:05)
[2018-01-26] MEDS: ERYTHROMYCIN 0.5% 1 GM OPHT.OINT EACHEYE SCH (22:10)
[2018-01-27] MEDS: ACETAMINOPHEN 500 MG TAB PO SCH (09:01)
[2018-01-27] MEDS: CARBIDOPA/LEVO CR 50 MG/200 MG TAB PO SCH (09:01)
[2018-01-27] MEDS: FAMOTIDINE 20 MG TAB PO SCH (09:01)
[2018-01-27] MEDS: ALLOPURINOL 100 MG TAB PO SCH (09:01)
[2018-01-27] MEDS: RIVAROXABAN 15 MG TAB PO SCH (09:02)
--- NOTE | 2018-01-27 10:44 | PDIAF ---
- Diagnosis Diagnosis: PE, encephalopathy, Parkinson's Code Status: Do Not Resuscitate - Medication Management Discharge Medications: Medications to Continue on Transfer Acetaminophen [Tylenol 325mg (*)] 650 mg PO Q4HRS PRN 10/14/17 [Last Taken Unknown] Carboxymethylcellulose 0.5% [Refresh Plus Drops 0.5%] 1 drops EACHEYE Q1HR PRN 10/14/17 [Last Taken Unknown] Polyethylene Glycol 3350 [Miralax 17 gm (*)] 17 gm PO DAILY PRN 10/14/17 [Last Taken 01/20/18] Ranitidine HCl [Zantac] 150 mg PO DAILY PRN 10/14/17 [Last Taken Unknown] Allopurinol [Allopurinol 100 MG (*)] 100 mg PO DAILY #30 tab 10/16/17 [Last Taken 01/20/18] Colchicine [Colchicine (*)] 0.6 mg PO BID PRN #60 ea 10/16/17 [Last Taken 18:30 one dose] Carbidopa/Levo Cr 50/200Mg [SINEMET CR 50/200 MG (*)] 1 tab PO DAILY 01/20/18 [ Last Taken 01/20/18] Erythromycin 0.5% 1 coy EACHEYE HS 01/20/18 [Last Taken 01/19/18] Herbals/Supplements -Info Only 1 ea PO DAILY 01/20/18 [Last Taken Unknown] Rivaroxaban [Xarelto 15mg (*)] 15 mg PO BIDMEAL tab 01/27/18 [Last Taken Unknown] Additional Medication Instructions: Xarelto 15mg PO BID until 02/13/18, then xarelto 20mg PO daily thereafter Discharge Medications: Refer to the Discharge Home Medication list for PRN reason. - Orders Services needed: Registered Nurse, Certified Occ Med Physician, Physical Therapy, Occupational Therapy Diet Recommendation: no restrictions on diet Diet Texture: Regular Texture Diet, Thin Liquids, Meds Whole in Puree - Follow Up Care Current Providers and Referrals: Micah Rodarte DO [Primary Care Provider] - As per Instructions
--- NOTE | 2018-01-27 11:21 | GDS ---
[f rep st] DISCHARGE SUMMARY ALL DIAGNOSES: 1. Acute pulmonary embolism, recurrent. 2. Acute hypoxic respiratory failure, resolved. 3. Acute encephalopathy, significantly improved. 4. Advanced Parkinson disease complicated by dementia, gait instability, deconditioning, urinary inc ontinence. HOSPITAL COURSE: This is an 87-year-old man with a history of a pulmonary embolus, who had been off anticoagulation for 2 months, presented with shortness of breath and upper abdominal chest pain. 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 He was initially slightly hypoxic, as well as tachycardic. His hemodynamics have improved, and he is on room air on the day of discharge. He has been placed on Xarelto 15 mg p.o. b.i.d. This should be changed to 20 mg p.o. daily after his doses on February 13. [facility] will be [facility] to [facility] in [facility] condition. I discussed all this with both him and his , and they are comfortable with this plan. BILLING: I spent more than 30 minutes on the day of discharge coordinating care. FOLLOWUP: He should follow up with senior care facility doctor, as well as his primary care doct or, Dr. Rodarte, on discharge. /[id number]/MODL
--- NOTE | 2018-01-27 11:58 | ASMTCMCOM ---
CM Note CM Note Notes: Patient medically cleared for dc to [facility]. Final orders and summaries via allscripts. Patient to transport via stretcher. PCS form filled out, RN to call report. CM available should other needs arise. Plan: DC to SNF [facility] Date Signed: 01/27/2018 11:57 AM Electronically Signed By:Irma Higuera RN
[2018-01-27 12:40] VITALS: BP 161/69
--- NOTE | 2018-01-27 17:02 | ASDISCHSUM ---
Discharge Information Plan Status:SNF Medically Cleared to Leave:01/27/2018 Discharge Date:01/27/2018 03:26 PM D/C Disposition:Senior Care Facility ADT D/C Disposition:Senior Care Facility Projected Discharge Date:01/24/2018 11:00 AM Transportation at D/C:ALS/BLS Discharge Delay Reason: Follow-Up Date:01/24/2018 11:00 AM Discharge Slot: Final Diagnosis: Placement Information Referral Type:*Home Health Care Services Referral ID:[id number] Provider Name: Address 1: Phone Number: Address 2: Fax Number: City: Selection Factors: State: Referral Type:*[facility]ci/SNF Referral ID:[id number] Provider [facility] Address 1:[address] Phone Number: Address 2: Fax Number: [facility]:[place] Selection Factors: State:[place] Patient Contact Information Contact Name:RICKYJEFFREY Relationship: Address:[address] [place] [address] Work Phone: City:[place] Alternate Phone: [facility]/Zip Code:[place] [address] Email: Financial Information Financial Class:Medicare Advantage Plans Primary Plan Desc:[facility] Ratio Primary Plan Number:[id number] Secondary Plan Desc: Secondary Plan Number: Assessment Information [facility] Progress Note CM Note CM Note Notes: Pt admitted w/bilat PE's and L diegoin clot. He lives at [facility] which is part of [employer] but at different location. CM met w/his , Ricky, who lives in their home but she is very involved. Pt will likely need [facility] RN and possibly PT (waiting for PT rec). Referrals sent. Ricky concerned about how much care/help he is needing right now. She will talk w/[facility] and see what level of care they can provide and she can hire private duty if needed. She does not want to send him to SNF. CM will follow. Date Signed: 01/21/2018 05:38 PM Electronically Signed By:Kay Borja RN [facility] CM Progress Note CM Note CM Note Notes: Discussed pt w/Dr Martinez and met w/pt and . They are now interested in SNF. has talked w/staff at [facility] where pt lives. Pt is doing better but still requiring more assistance than they can provide at [facility]. Pt does have dementia. First choice for SNF is [facility] and 2nd choice [facility]. Referrals sent to both. Pt may possibly be ready for dc tomorrow. CM will follow. Date Signed: 01/23/2018 02:43 PM Electronically Signed By:Kay Borja RN [facility] CM Progress Note CM Note CM Note Notes: 01/25/2018 Case Management Note Pt visited by Fabi from [facility]. [facility] able to accept pt. visited with Fabi as well. Case Management d/c poc: to [facility] Case Management to follow. Date Signed: 01/25/2018 03:30 PM Electronically Signed By:Steffi Kennedy RN [facility] CM Progress Note CM Note CM Note Notes: Patient medically cleared for dc to [facility]. Final orders and summaries via allscripts. Patient to transport via stretcher. PCS form filled out, RN to call report. CM available should other needs arise. Plan: DC to SNF [facility] Date Signed: 01/27/2018 11:57 AM Electronically Signed By:Irma Higuera RN Intervention Information
== END 2018-01-27 15:26 | DRG 175 ==
LOC: F2W 15:10
PROVIDERS: ADMIT Internal Medicine; ATTEND Internal Medicine
DX: I26.99 Other pulmonary embolism without acute cor pulmonale (principal); J96.01 Acute respiratory failure with hypoxia; G93.40 Encephalopathy, unspecified; G31.83 Neurocognitive disorder with Lewy bodies; F02.80 Dementia in other diseases classified elsewhere, unspecified severity, without behavioral disturbance, psychotic disturbance, mood disturbance, and anxiety; R26.9 Unspecified abnormalities of gait and mobility; M10.9 Gout, unspecified; Z66 Do not resuscitate; Z91.81 History of falling; Z86.711 Personal history of pulmonary embolism
CPT/HCPCS: 82947-QW; 92610-GN; 96374; 97110-GP; 97116-GP; 97163-GP; 97166-GO; 97530-GO; 97530-GP; 97535-GO; G8978-GP-CM; G8979-GP-CK; G8987-GO-CK; G8988-GO-CK; G8996-GN-CI; G8997-GN-CI; G8998-GN-CI; J1650; J2270; Q9967